=== PATIENT | female | born 1935 | race Caucasian/White ===

== ENCOUNTER 2024-11-04 09:29 | Outpatient (CLI) | payer OTHER, SELFPAY ==
--- NOTE | ~2024-11-04 | CT_ITS ---
EXAMINATION: CT cervical spine wo con DATE: 11/04/2024 10:27 INDICATION: Head injury. Fall. TECHNIQUE: Computed tomography (CT) of the cervical spine was performed without intravenous contrast. Automated exposure control and iterative reconstruction technique were employed. The dose-length pro duct was 204.87 mGy-cm. COMPARISON: None FINDINGS: There is a 9 mm nodule in left thyroid lobe, likely not clinically significant. There is 6 degrees levocurvature of cervical spine. There is 2 mm retrolisthesis of C3 on C4. There is mild grinder set up operator internal mikel anterior wedging of T1 vertebral body. There is moderately decreased disc height at C2-C3 and sev erely decreased disc height from C3-C4 through C6-C7 and at T1-T2 and T2-T3. The following disc level s are specifically discussed: C2-C3: There is mild lateral uncovertebral joint osteoarthritis. There is severe bilateral facet join t osteoarthritis. There is mild left neural foraminal stenosis. There is mild central canal stenosis. C3-C4: There is severe bilateral uncovertebral joint osteoarthritis. There is severe bilateral facet joint osteoarthritis. There is mild bilateral neural foraminal stenosis. There is mild central canal stenosis. C4-C5: There is severe right and moderate left uncovertebral joint osteoarthritis. There is severe bi lateral facet joint osteoarthritis. There is mild bilateral neural foraminal stenosis. There is mild central canal stenosis. C5-C6: There is severe bilateral uncovertebral joint osteoarthritis. There is severe right and modera te left facet joint osteoarthritis. There is moderate bilateral neural foraminal stenosis. There is m ild central canal stenosis. C6-C7: There is severe bilateral uncovertebral joint osteoarthritis. There is severe bilateral facet joint osteoarthritis. There is mild bilateral neural foraminal stenosis. There is mild central canal stenosis. C7-T1: There is no uncovertebral joint osteoarthritis. There is severe bilateral facet joint osteoart hritis. There is mild bilateral neural foraminal stenosis. There is no central canal stenosis. IMPRESSION: 1. No fracture. 2. Severe cervical spondylosis. Reviewed, dictated and finalized at location A. RM[employer] SYSTEMS PLANNER
--- NOTE | ~2024-11-04 | CT_ITS ---
EXAMINATION: CT brain wo con DATE: 11/04/2024 10:27 INDICATION: Weakness and weakness 2 days post fall with head injury and left-sided facial abrasions. TECHNIQUE: Computed tomography (CT) of the head was performed without intravenous contrast. Sagittal and coronal reconstructions were performed. The mA was adjusted according to patient size. Iterative reconstruction technique was employed. The dose-length product was 681.00 mGy-cm. COMPARISON: None FINDINGS: No fracture. No acute intracranial hemorrhage, acute infarction or abnormal extra axial fluid collect ion. There is mild scattered white matter hypoattenuation consistent with chronic small vessel ischem ic disease. Symmetric prominence of the sulci and ventricles consistent with mild age-appropriate dif fuse cerebral volume loss. No mass/mass effect. Mild mucosal thickening the bilateral ethmoid sinuses . Changes of bilateral intraocular lens replacement. The orbits and mastoid air cells are normal. IMPRESSION: 1. Normal aging brain. No fracture or acute intracranial process. Reviewed, dictated and finalized at location B. TAPER HELPER
--- OUTSIDE RECORDS SUMMARY | 2024-11-04 10:13 | XMS_ITS | Data Portability ---
Author Organization [facility], [address] [facility] Neurology ([place]) Address [address] [address] Care Team Providers Care Nutrition Services Assistant Name Role Phone MARIAELENA METZGER Primary Care Provider Assessment Encounter Date Assessment Date Assessment LastModified by Organization Details LastModified Time 07/29/2024 07/29/2024 HISTORY OF PRESE NT ILLNESS: The patient presents with her daughter for follow up of left shoulder pain and bilateral knee pain. She was given land and aqua continue therapy order at last appointment. However, she had an endoscope which delayed her restarting therapy. Her knees are doing well. She is ambulating with her cane. She still has shoulder pain and feels as if she is losing a little bit of mobility because of lack of therapy. PHYSICAL EXAMINATION: CONST: No acute distress. HENT: Oral mucosa pink and moist. RESP: Breathing appears normal. No use of accessory muscles. PSYCH: Stable mood and affect. NEURO: No speech difficulty. MSK: 2+ palpable radial pulse. Sensation intact to upper extremity dermatomes. Motor intact to radial, medial, ulnar distributions. On the left: The patient has about 75 degrees of forward flexion and abduction of the left shoulder. She has 45 degrees of external rotation. End range is slightly painful for her but she does tolerate it. 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 PLAN: The patient will submit her continue therapy order and restart the land and aqua therapy as soon as possible. She will follow up with me in 8 weeks to see how she is doing. No x-rays are needed at that time. The patient verbalized an understanding. All questions were answered. [email or web address] Not available 07/29/2024 16:00:08 08/12/2024 08/12/2024 They are going t o keep with the 30 mg dosage and continue monitoring for the next month. They will bring the blood pressure numbers back when they come. We talked about going to 40 mg of the lisinopril if the blood pressure is not controlled. Her BUN and creatinine were both elevated on the diuretics I do not think restarting the diuretic is a good idea at this point. They will monitor the the legs and if they get larger or become painful then we may need to address that. She can help with this by getting the legs up 3-4 times daily for 20 minutes above heart level. She is also watch salt intake. She does want to get the flu shot today. We discussed the shingles vaccine but it cannot be given at same time. The daughter plans to take her to [facility] to get that done. We will see her back in 1 month for recheck on the blood pressure or sooner problems arise. Patient verbalizes understanding and agreement with the treatment plan. Patient will continue to follow-up for acute health issues and routine medication checks. I personally spent a total of 20 minutes on the patient on this date of service including both wkkq-uh-vunh and rkm-tuku-su-face time excluding any separately reportable services. [email or web address] Not available 08/13/2024 18:27:22 09/14/2024 09/14/2024 We will continue the 30 mg dosage. I am going to change in the computer system today so that when it comes time to refill she will get the single 30 mg tablet and there will not be need to take 2 tablets daily. The patient and the daughter do understand this. When she is in need of refills they can call back and we will get that sent to the pharmacy. In the meantime I would like her to check the pressure once weekly to make sure that it is staying under control. If she is seeing consistent elevation above the 140/90 kaila they should call for further guidance. We will follow her up in 6 months unless there are problems in the meantime. Discussed with the patient they will be notified of results by patient portal or by mail. They will be notified of results by phone, only if results require immediate attention. Patient verbalizes understanding and agreement with the treatment plan. Patient will continue to follow-up for acute health issues and routine medication checks. [email or web address] Not available 09/14/2024 13:59:33 09/23/2024 09/23/2024 HISTORY OF PRESE NT ILLNESS: The patient presents for follow up of bilateral knee pain and left shoulder pain. The patient has left shoulder osteoarthritis. She has been doing land and aqua therapy which is going well. Her knees are doing great but she is still having significant left shoulder pain. She feels as if sometimes the exercises increase her pain. She is present with her daughter today. She is not gaining any mobility in her left shoulder. She would like to try a shoulder injection today. PHYSICAL EXAMINATION: CONST: No acute distress. HENT: Oral mucosa pink and moist. RESP: Breathing appears normal. No use of accessory muscles. PSYCH: Stable mood and affect. NEURO: No speech difficulty. MSK: 2+ palpable radial pulse. Sensation intact to upper extremity dermatomes. Motor intact to radial, medial, ulnar distributions. On the left: Forward flexion to 80 degrees as well as abduction. Range of motion is painful for her. DIAGNOSTIC DATA: Imaging from December 2023 of her left shoulder is reviewed and demonstrates severe bone on bone osteoarthritis of the left shoulder. These images were independently reviewed. Please see radiologist's report for full details. PROCEDURE: Informed consent was discussed and obtained. An explanation of the procedure was provided. The risks and benefits of the procedure, the risks and benefits of alternative procedures, as well as the possible consequences of not undergoing the procedure were discussed. Patient verbalized understanding and provided consent to proceed. The left shoulder shoulder was sterilely prepped. The left acromioclavicular joint was injected intraarticularly with a mixture of 6 cc of 0.5% marcaine without epinephrine and 1 cc of 80 mg methyl prednisone. The patient was given the appropriate instructions for aftercare following acromioclavicular joint injection. Patient verbalized understanding of aftercare instructions. The patient tolerated the procedure well. PLAN: The patient opted for a left shoulder injection today. She can continue her therapy. She will follow up in clinic in 6 weeks for a clinical recheck. The patient verbalized an understanding. All questions were answered. [email or web address] Not available 09/23/2024 14:36:09 10/19/2024 10/19/2024 1. Hypertension is not well-controlled. I did repeat her blood pressure and it had come down. They are watching her blood pressure at home. 2. Gastric reflux secondary to large hiatal hernia. We talked about this and went over CT scans. She was reassured to understand what was happening. 3 she will continue medications for her cholesterol. 4. 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 there has been no change in the erosion. She did see a specialist a few years ago for this and conservative monitoring was recommended. Right now, she is not having any incontinence or pain. 5. Memory changes were evident today. She admitted that she was not remembering things as well. She has good family support. return in 6 months or as needed for follow up. time 30 minutes [email or web address] Not available 10/19/2024 23:32:56 Plan of Treatment Reminders Order Date Submit Date Provider Last Modified By Organization Details Last Modified Time Details Appointments [facility] Patient 15.EST 2024 01:30P M Estephania Zayas Not available Not available Not available [facility] Patient 15.EST 2024 10:45A M Dr. Martínez Sanchez Not available Not available Not available [facility] Patient 15.EST 2024 02:30P M Dr. Mariaelena Cerrato Not available Not available Not available Lab None recorded . Referral None recorded . Procedures None recorded . Surgeries None recorded . Imaging None recorded . Medication Orders lisinopr il 30 mg tablet 2023 024 [facility], [id number] [facility], [place], [address], 09/14/2024 12:32:17 omeprazo le 20 mg capsule, delayed release 2024 025 [email or web address] [facility], [address] [place] [address], [id number], 10/19/2024 14:05:37 lisinopr il 30 mg tablet 2024 025 [email or web address] [facility], [address] [place] [address], [id number], 10/19/2024 14:05:37 metoprol ol succinat e ER 50 mg tablet,e xtended release 24 hr 2024 025 [facility], [address] [place] [address], [id number], 10/19/2024 14:05:37 Crestor 20 mg tablet 2024 025 [email or web address] [facility], [address] [place] [address], [id number], 10/19/2024 14:05:37 Patient TargetsNo targets recorded. Patient InstructionsNo instructions recorded. Reason for Referral None Reported. Results Created Date Observation Date Name Description Value Unit Range Abnormal Flag Note LastModifiedBy Organization Detail LastModifiedTime 07/18/20 24 07/19/2024 surgi evaristo patho logy study tissue exam biopsy [facility] [address],[place] [address] Ph. [phone] Chance Molina MD, PhD, Medic al Direc KRISTINE Lora MD Patie nt: MURIEL R, ODALIS EY L Sampl e ID: [id number] Repor t Statu s: Final :0 1934 Case #: [id number] Age: 89 Y Gende r: F Date Colle cted: 07/18 MRN # : [id number] Date Recei jerica: 07/18 Repor yonas Date: 07/19 FINAL DIAGN OSIS: Stoma ch, biops y: - Benig n gastr ic antra l mucos a with minim al chron ic infla mmati on, negat rashel for Helic obact er organ isms on routi ne stain Elect lisa stone Verluke ied by Bandar juarez MD Elect lisa mckeon 07/19 11:59 SPECI MEN SOURC E: Stoma ch, biops y GROSS DESCR IPTIO N: The speci men conta iner and requi sitio n have the same patie nt name. Recei jerica in 10% neutr al buffe red forma donn for forma donn-f ixed paraf fin-e mbedd ed secti ons label ed A, gastr ic biops y is a singl e fragm ent of moses- birch soft tissu e that is 0.5 cm in [facility] sam. The speci men is entir aishwarya submi tted for histo logic study in one casse tte. [facility] IN[facility] MATIO N: Reflu x. Colon scree n. Not Available [facility] [address] [place] [address], [id number], 07/19/2024 13:03:51 07/25/2007/26/2024 BMP, serum or plasm a basic met. panel Not Available [facility] [address] [place] [address], [id number], 07/26/2024 18:57:59 07/25/2007/26/2024 BMP, serum or plasm a glucose 96 mg/dL 70-100 Not Available [facility] [address] [place] [address], [id number], 07/26/2024 18:57:59 07/25/2007/26/2024 BMP, serum or plasm a sodium 139 mmol/ L 136-14 6 Not Available [facility] [address] [place] [address], [id number], 07/26/2024 18:57:59 07/25/2007/26/2024 BMP, serum or plasm a potassium 4.2 mmol/ L 3.5-5. 1 Not Available [facility] [address] [place] [address], [id number], 07/26/2024 18:57:59 07/25/2007/26/2024 BMP, serum or plasm a chloride 103 mmol/ L 98-110 Not Available [facility] [address] [place] [address], [address], 07/26/2024 18:57:59 07/25/2007/26/2024 BMP, serum or plasm a CO2 28 mEq/L 20-32 Not Available [facility] [address] [place] [address], [address], 07/26/2024 18:57:59 07/25/2007/26/2024 BMP, serum or plasm a anion gap 12 mmol/ L 10-22 Not Available [facility] [address] [place] [address], [address], 07/26/2024 18:57:59 07/25/2007/26/2024 BMP, serum or plasm a calcium 9.8 mg/dL 8.4-10 .4 Not Available [facility] [address] [place] [address], [address], 07/26/2024 18:57:59 07/25/2007/26/2024 BMP, serum or plasm a BUN 22 mg/dL 7-21 high Not Available [facility] [address] [place] [address], [address], 07/26/2024 18:57:59 07/25/2007/26/2024 BMP, serum or plasm a creatinine 1.0 mg/dL 0.7-1. 3 Not Available [facility] [address] [place] [address], [address], 07/26/2024 18:57:59 07/25/2007/26/2024 BMP, serum or plasm a GFR(non-afri can finnish) 55 The MDRD equat ion provi austin a good estim ation of the true GFR and refle cts dimin ished renal funct ion. It has been valid ated for optim al perfo rmanc e in adult patie nts betwe en 18-85 years of age. The follo wing condi tions may alter the GFR resul t ; extre mes in body size, sever e malnu triti on, skele christy muscl e disea se, parap legia or quadr ipleg ia, veget anahy diet, pregn wilda and rapid ly-ch angin g kidne y funct ion. Not Available [facility] [address] [place] [address], [id number], 07/26/2024 18:57:59 07/25/2007/26/2024 BMP, serum or plasm a GFR() 67 The MDRD equat ion provi austin a good estim ation of the true GFR and refle cts dimin ished renal funct ion. It has been valid ated for optim al perfo rmanc e in adult patie nts betwe en 18-85 years of age. The follo wing condi tions may alter the GFR resul t ; extre mes in body size, sever e malnu triti on, skele christy muscl e disea se, parap legia or quadr ipleg ia, veget anahy diet, pregn wilda and rapid ly-ch angin g kidne y funct ion. (HYDRAULIC BLOCKER SAVITA KIDNE Y DISEA SE HAS A GFR LESS THAN 60 ML/NJ N/1.7 3 MM FOR A PERIO D OF THREE MONTH S OR MORE. ) Not Available [facility] [address] [place] [address], [id number], 07/26/2024 18:57:59 06/30/2006/23/2024 CT, chest , w/o contr ast No observ ation record ed. [email or web address] [facility] - [place], [address], 06/30/2024 08:55:56 07/14/20 24 06/10/2024 XR, chest , 2 view No observ ation record ed. [email or web address] Not Available 2023 10:31:18 07/26/20 24 01/25/2024 imagi ng/di agnos tic resul t No observ ation record ed. [email or web address] Not Available 00:02:01 08/03/20 24 06/23/2024 CT, chest , w/o contr ast No observ ation record ed. [email or web address] [facility] - [place], [address], 08/03/2024 10:38:35 08/10/20 24 06/29/2024 jerel alberto am No observ ation record ed. [email or web address] Not Available 2023 13:18:33 09/27/20 XR, knee No observ ation record ed. [email or web address] Not Available 2023 11:45:36 Result Notes None recorded. Problems Name Problem SNOMED Code Status Onset Date Resolution Date Notes Provider Name and Address Organization Details Recorded Time Cough 26855884 Active 2023 Luisa Anne [facility] 4 12:25:50 Morbid obesity 895188164 Active Not Available [facility] 4 12:38:48 Ascending aorta dilatation 308290349 Active Not Available [facility] 4 12:38:50 Interstiti al lung disease 878315546 Active Not Available [facility] 4 12:38:54 Benign essential hypertensi on 8321165 Active 2023 Zayra Diaz [facility] 5 09:12:08 Hyperlipid emia 79790387 Active 2023 Luisa Anne [facility] 5 11:54:16 Anxiety 48536102 Active 2023 Zayraher Diaz [facility] 5 09:12:03 Chronic constipati on 879848430 Active 2023 Mariaelena Cerrato MD [address] [place] [address], [address] , [facility] 4 15:35:03 Pain in right hip joint 5542412694360 02 Active 2023 Mariaelena Cerrato MD [address] [place] [address], [address] , [facility] 4 15:35:14 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 1083642252 Active 2023 Mariaelena Cerrato MD [address] [facility], [place], [address] , [facility] 4 15:35:26 Conductive hearing loss 57390313 Active 2023 Zayra Joe [facility] 5 09:12:17 Cystocele 662537073 Active 2023 Mariaelena Cerrato MD [address] [facility], [place], [address] , [facility] 4 15:35:43 Esophageal reflux finding 592557008 Active 2023 Mariaelena Cerrato MD [address] [facility], [place], [address] , [facility] 4 15:36:02 History of deep vein thrombosis 531011462 Active 2023 Mariaelena Cerrato MD [address] [facility], [place], [address] , [facility] 4 15:36:12 Low back pain 888359502 Active 2023 Mariaelena Cerrato MD [address] [facility], [place], [address] , [facility] 4 15:36:29 Urinary incontinen ce 461218363 Active 2023 Mariaelena Cerrato MD [address] [place] [address], [address] , [facility] 4 15:36:37 Obstructiv e sleep apnea syndrome 55162998 Active 2015 Kandi Barnes [facility] 4 15:18:28 Osteoporos is 24314373 Active 2023 Zayra Joe [facility] 5 09:12:48 Hiatal hernia 23946883 Active 2023 Mariaelena Cerrato MD [address] [place] [address], [address] , [facility] 5 23:23:29 Bilateral osteoarthr itis of knees 1654736372157 07 Active 2023 Michelle Vigil [facility] 4 11:46:31 Daytime somnolence 626899793223 Active 2018 Kandi Barnes [facility] 4 15:18:28 Primary hyperchole sterolemia 630764365 Active 2016 Zayra Gargrecia [facility] 5 09:12:42 Left carotid artery stenosis 1273230249684 03 Active 2015 Zayra Gargrecia [facility] 5 09:13:09 Depressive disorder 10125869 Active 2015 Zayra Gargrecia [facility] 5 09:13:54 Takotsubo cardiomyop athy 615991002 Active 2015 Zayra Gargrecia [facility] 5 09:12:35 Hypertensi ve heart failure 96219464 Active 2016 [facility] Leonidesgrecia [facility] 5 09:13:24 Complicati on of medical care 45407142 Active 2024 Mariaelena Cerrato MD [address] [place] [address], [address] , [facility] 5 23:23:20 Sliding hiatus hernia 603994415 Active 2024 Mariaelena Cerrato MD [address] [place] [address], [address] , [facility] 5 23:23:31 Pain of bilateral knee joints 7225600704316 04 [facility] 2023 [facility] 10[facility]50[facility]22 History of bilateral total knee replacemen t 4489302653683 103 Active 2023 Estephania Zayas PA-C [address] [place] [address], [address] , [facility] 4 11:56:40 Osteoarthr itis of joint of left shoulder region 4303143351926 08 Active 2023 Estephania Zayas PA-C [address] [place] [address], [address] , [facility] 4 11:56:52 Pain of left shoulder region Active 2023 Estephania Zayas PA-C [address] [place] [address], [address] , [facility] 4 11:57:04 Obstructiv e sleep apnea of adult 6712894069221 Active 2023 [facility] 09:12:58 Problem Notes None recorded. Procedures Surgical History Date Name Laterality Status Provider Name and Address Organization Details Recorded Time 07/18/20 24 [place] Operative Report completed Josefa Polo [facility] 07/18/2024 19:58:03 incision of anal fistula completed Mariaelena Cerrato MD [address] [place] [address], [address], [facility] 06/12/2024 15:37:21 operation on urinary bladder completed Mariaelena Cerrato MD [address] [place] [address], [address], [facility] 06/12/2024 15:37:29 extraction of cataract completed Mariaelena Cerrato MD [address] [place] [address], [address], [facility] 06/12/2024 15:37:36 Cholecystectomy completed Mariaelena Cerrato MD [address] [place] [address], [address], [facility] 06/12/2024 15:37:45 repair of inguinal hernia completed Mariaelena Cerrato MD [address] [place] [address], [address], [facility] 06/12/2024 15:37:52 arthroplasty of knee completed Mariaelena Cerrato MD [address] [place] [address], [address], [facility] 06/12/2024 15:37:59 Back Surgery completed Mariaelena Cerrato MD [address] [place] [address], [address], [facility] 06/12/2024 15:38:30 Imaging Results Imaging Date Name Status LastModified by Organization Details LastModified Time 06/23/2024 CT, chest, w/o contrast completed [email or web address] [facility] [place], [address], 06/30/2024 08:55:56 06/10/2024 XR, chest, 2 view completed [email or web address] Informa tion not available 07/14/2024 10:31:18 01/25/2024 imaging/diagnostic result completed [email or web address] Information not available 07/26/2024 00:02:01 06/23/2024 CT, chest, w/o contrast completed [facility] [place], [address], 08/03/2024 10:38:35 06/29/2024 electrocardiogram completed [facility] Informa tion not available 08/10/2024 13:18:33 09/27/2024 XR, knee completed [email or web address] Information no t available 09/27/2024 11:45:36 Procedure Notes None recorded. Medical Equipment None Reported. Allergies Allergen ID Allergen Name Allergen Category Reaction Reaction Severity Criticality Documentation Date Start Date Code Code System Note Provider Name and Address Organization Details Recorded Time 3208593 Parafon Fort[employer] [facility] medicatio n dizziness Not available Not available 10/28/20232008 86799 8 RxNorm React ion: Dizzi ness; Not Available Not Available Not Available 485638 Product containin g mercury and/or mercury compound (product) medicatio n rash Not available Not available 10/26/20232008 84303 6000 SNOMED React ion: Rash; Not Available Not Available Not Available 890279 mustard oil food,medi cation rash Not available Not available 10/26/20232015 28174 31 RxNorm Not Available Not Available Not Available 493102 apple allergeni c extract food,medi cation rash Not available Not available 10/26/20232011 20095 1 RxNorm React ion: Rash; Comme nt: Apple s ; Not Available Not Available Not Available 991106 mustard seed allergeni c extract food,medi cation rash Not available Not available 10/26/20232013 52027 6 RxNorm React ion: Rash; Comme nt: Musta rd Re actio n Date: 17 Nov 2012 ; Not Available Not Available Not Available 938289 chlorzoxa zone medicatio n Not available Not available Not available 10/26/20232018 2410 RxNorm Not Available Not Available Not Available 039469 Product containin g 3-hydroxy -3-methyl glutaryl- coenzyme A reductase inhibitor (product) medicatio n Not available Not available Not available 10/26/20232015 42575 009 SNOMED Other react ions and sever ities : 'Unkn own'. Not Available Not Available Not Available Medications Name Sig Start Date Stop Date Status Note LastModified by Organization Details LastModified Time amoxicillin 500 mg capsule TAKE FOUR CAPSULES BY MOUTH ONE HOUR BEFORE APPOINTME NT active Not Available Not Available No t Available latanoprost 0.005 % eye drops INSTILL 1 DROP IN BOTH EYES EVERY DAY AT BEDTIME active Not Available Not Available No t Available clonidine HCl 0.1 mg tablet Take 1 {tbl} twice a day by oral route. 07/25 completed Not Available Not Available Not Available Stool Softener 100 mg capsule TAKE 1 CAPSULE BY MOUTH TWICE DAILY NEEDED active Not Available Not Available No t Available metoprolol succinate ER 50 mg tablet,exte nded release 24 hr TAKE 2 TABLETS IN THE MORNING AND 1 TABLET IN THE EVENING 2024 active Not Available Not Available Not Avai lable metronidazo le 0.75 % (37.5 mg/5 gram) vaginal gel 07/25 completed Not Available Not Available Not Available lisinopril 20 mg tablet TAKE ONE TABLET DAILY 10/19 completed Not Available Not Available Not Available chlorthalid one 25 mg tablet TAKE 1 TABLET DAILY 08/12 completed Not Available Not Available Not Available chlorthalid one 50 mg tablet Take 1 {tbl} by oral route. 07/25 completed Not Available Not Available Not Available aspirin 81 mg tablet,pedro yed release 07/25 completed Not Available Not Available Not Available ropinirole 0.5 mg tablet 08/12 completed Not Available Not Available Not Available lisinopril 10 mg tablet TAKE 1 TABLET DAILY ALONG WITH 20MG TO EQUAL 30MG 09/14 completed Not Available Not Available Not Available Citrucel 500 mg tablet 1000 mg by oral route. active Not Available Not Available No t Available ascorbic acid (vitamin C) 500 mg chewable tablet Take 1 {tbl} by oral route. 09/14 completed Not Available Not Available Not Available lisinopril 30 mg tablet Take 1 tablet every day by oral route. 2024 active Not Available Not Available Not Avai lable omeprazole 20 mg capsule,del ayed release TAKE 1 CAPSULE DAILY 2024 active Not Available Not Available Not Avai lable timolol maleate 0.5 % eye drops INSTILL 1 DROP INTO EACH EYE IN THE MORNING active Not Available Not Available No t Available Estrace 0.01% (0.1 mg/gram) vaginal cream 07/25 completed Not Available Not Available Not Available erythromyci n with ethanol 2 % topical gel APPLY AND RUB IN A THIN FILM TO AFFECTED AREA(S) ONCE OR TWICE DAILY 06/10 completed Not Available Not Available Not Available Crestor 20 mg tablet Take 1 tablet every day by oral route. 01/22/ 2025 active Not Available Not Available Not Avai lable cholecalcif laureen (vitamin D3) 50 mcg (2,000 unit) tablet 07/25 completed Not Available Not Available Not Available aspirin 81 mg capsule Take 1 capsule every day by oral route. active Not Available Not Available No t Available Vitals Date Recorded Body height Body mass index (BMI) Body weight Heart rate Respiratory rate Oxygen saturation Oxygen saturation in Arterial blood by Pulse oximetry Systolic blood pressure Diastolic blood pressure Provider Name and Address Organization Details Last Updated DateTime 4 160.02 cm 34.9 kg/m2 01235.7 g 66 /min 16 /min 94 % 94 % 155 mm[Hg] 83 mm[Hg] Darya Nahid [facility] 4 14:28:50 Date Recorded Body height Body mass index (BMI) Body weight Heart rate Oxygen saturation Oxygen saturation in Arterial blood by Pulse oximetry Body temperature Systolic blood pressure Diastolic blood pressure Provider Name and Address Organization Details Last Updated DateTime 4 160.02 cm 34.9 kg/m2 32601.4 2 g 76 /min 92 % 92 % 96.8 [degF] 148 mm[Hg] 82 mm[Hg] [facility] 4 15:38:23 Date Recorded Oxygen saturation Oxygen saturation in Arterial blood by Pulse oximetry Provider Name and Address Organization Details Last Updated DateTime 08/12/2024 98 % 98 % Ildefonso Morris PA-C [facility], [address], [facility] 08/12/2024 16:16:20 Date Recorded Body height Body mass index (BMI) Body weight Body temperature Oxygen saturation Oxygen saturation in Arterial blood by Pulse oximetry Heart rate Systolic blood pressure Diastolic blood pressure Provider Name and Address Organization Details Last Updated DateTime 4 160.02 cm 33.5 kg/m2 75081.6 8 g 96.4 [degF] 96 % 96 % 74 /min 134 mm[Hg] 72 mm[Hg] [facility] 4 12:08:37 Date Recorded Body height Body mass index (BMI) Body weight Heart rate Oxygen saturation Oxygen saturation in Arterial blood by Pulse oximetry Systolic blood pressure Diastolic blood pressure Provider Name and Address Organization Details Last Updated DateTime 4 160.02 cm 33.5 kg/m2 85713.9 6 g 76 /min 97 % 97 % 143 mm[Hg] 77 mm[Hg] Michelle Vigil [facility] 4 14:04:11 Date Recorded Body height Body mass index (BMI) Body weight Body temperature Heart rate Oxygen saturation Oxygen saturation in Arterial blood by Pulse oximetry Systolic blood pressure Diastolic blood pressure Provider Name and Address Organization Details Last Updated DateTime 5 160.02 cm 32.1 kg/m2 12976.2 2 g 96.9 [degF] 64 /min 93 % 93 % 168 mm[Hg] 88 mm[Hg] Luisa Anne [facility] 5 11:46:23 Social History None recorded. Functional Status None recorded. Mental Status None recorded. Family History Relationship Description Onset Age of this Age Resolved Age Notes LastModified by Organization Details LastModified Time Maternal Aunt Malignant tumor of colon [email or web address] Not available 2023 15:38:57 Maternal Aunt Malignant tumor of breast [email or web address] Not available 2023 15:39:52 Father Heart disease Not available 2023 15:39:08 Mother Suicide [email or web address] Not available 06/12/2024 15:39:21 Sister Malignant neoplasm of skin [email or web address] Not available 2023 15:39:33 Medical History No medical history recorded. Gynecological HistoryNo gynecological history recorded. Obstetrics History GPAL:G 0 P 0 0 0 0 Immunizations Vaccine Type Date Status Note Provider Nam e and Address Organization Details Recorded Time Influenza, adjuvanted, quadrivalent, PF 07/13/20 23 completed Luisa Anne [facility] 06/10/2024 12:22:22 Influenza, adjuvanted, quadrivalent, PF 07/15/20 22 completed Luisa Anne [facility] 06/10/2024 12:22:22 Influenza, adjuvanted, quadrivalent, PF 07/26/20 20 completed Luisa Anne [facility] 06/10/2024 12:22:22 Influenza, adjuvanted, quadrivalent, PF 08/05/20 21 [facility] 12:22:22 COVID-19, mRNA, LNP-S, PF, 100 mcg/0.5mL dose or 50 mcg/0.25mL dose 10/13/19 21 completed [facility] 12:22:22 COVID-19, mRNA, LNP-S, PF, 100 mcg/0.5mL dose or 50 mcg/0.25mL dose 11/10/19 21 completed [facility] 12:22:22 COVID-19, mRNA, LNP-S, PF, 100 mcg/0.5mL dose or 50 mcg/0.25mL dose 02/18/20 22 completed [facility]/10[facility]24 12:22:22 COVID-19, mRNA, LNP-S, PF, 100 mcg/0.5mL dose or 50 mcg/0.25mL dose 08/24/20 21 completed [facility] 06/10/[facility]24 12:22:22 COVID-19, mRNA, LNP-S, bivalent, PF, 50 mcg/0.5 mL or 25mcg/0.25 mL dose 07/10/20 22 completed [facility]24 12:22:22 pneumococcal conjugate PCV 7 12/06/19 15 completed [facility]/10[facility]24 12:22:22 pneumococcal polysaccharide PPV23 07/13/20 23 completed [facility] 12:22:22 Influenza, split virus, trivalent, preservative 08/04/20 17 completed [facility] 12:22:22 Influenza, split virus, trivalent, PF 06/28/20 16 completed Luisa Anne null, [facility] 06/10/2024 12:22:22 Influenza, split virus, trivalent, PF 06/29/20 15 completed Luisa Pimenteln null, [facility] 06/10/2024 12:22:22 Influenza, split virus, quadrivalent, PF 08/29/20 19 completed Luisa Pimenteln null, [facility] 06/10/2024 12:22:22 Influenza, split virus, quadrivalent, PF 09/07/20 18 completed Luisa Anne null, [facility] 06/10/2024 12:22:22 Influenza, adjuvanted, trivalent, PF 08/12/20 24 completed Ildefonso Morris PA-C [facility], [address], [facility] 08/15/2024 16:56:05 Past Encounters Encounter ID Performer Location Encounter Start Date Encounter Closed Date Diagnosis/Indication Diagnosis SNOMED-CT Code Diagnosis ICD10 Code Diagnosis Note [id number] Estephania Zayas PA-C [facility] [place] [address] [place] [address] 03/18/2024 09:50:33 03/19/2024 05:35:19 Pain of bilateral knee joints 6114244424 01795 M25.561 M25.562 History of bilateral total knee replacement 1527778841 454798 Z96.653 Pain of le ft shoulder region 6314433346 M25.512 Osteoarthr itis of joint of left shoulder region 6138995445 07107 M19.425 [id number] Mariaelena Schwarz, WIND TURBINE PERFORMANCE ENGINEER, POWERBUILDER [facility] [place] [address] [place] [address] 05/13/2024 09:49:05 05/13/2024 14:17:34 Osteoarthritis of joint of left shoulder region 9632815000 78541 M19.012 M54.50 M25.569 Pain of bi lateral knee joints 0162319763 73777 M25.561 M25.562 Pain of le ft shoulder region 2220525232 M25.010 [id number] MD [facility] ([place] [address] 06/10/2024 11:34:40 06/10/2024 15:55:30 Morbid obesity 197790464 E66.01 Ascending aorta dilatation 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 I77.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 006138928 J84.9 Cough 38819550 R05.9 Benign ess ential hypertension 7292076 I10 Hyperlipidemia 70973612 E78.5 [id number] Nakita Lozoya, WIND TURBINE PERFORMANCE ENGINEER, POWERBUILDER [address] [facility] ([place]) [address] [place] [address] 06/30/2024 11:02:57 06/30/2024 11:57:50 Hiatal hernia 74588178 K44.9 R05.9 [id number] Jono Ibrahim MD [facility] Anesthesi a S [address] [place] [address] 07/18/2024 10:55:45 07/26/2024 10:01:10 [id number] Estephania Zayas PA-C [facility] ([place] [address] 07/08/2024 11:21:07 07/08/2024 18:40:12 Osteoarthritis of joint of left shoulder region 6652362597 59027 M19.012 M54.50 M25.569 Pain of bi lateral knee joints 8401071792 42567 M25.561 M25.562 [id number] Kristine Win MD [facility] ([place]) [address] [place] [address], [address] [place] [address] 07/18/2024 10:55:47 07/21/2024 09:09:42 [id number] MD Ekta [facility] ([place] [address] 07/25/2024 14:42:23 07/25/2024 16:50:23 Benign essential hypertension 3388888 I10 Chronic constipation 236 408861 K59.09 Cough 46570499 R05.9 Hiatal hernia 95710489 K 44.9 R05.9 [id number] [facility] ([place] [address] 07/29/2024 14:21:06 07/29/2024 18:49:12 Osteoarthritis of joint of left shoulder region 7189884395 87899 M19.012 M54.50 M25.569 History of bilateral total knee replacement 0647478123 223624 Z96.653 [id number] NAREN [facility] ([place] [address] 08/12/2024 15:07:22 08/12/2024 16:30:38 [facility] [id number] 41296 Z23 [id number] NAREN Hernandez [facility] ([place] [address] 09/14/2024 11:58:23 09/14/2024 13:13:27 Benign essential hypertension 9912860 I10 Long-term current use of drug therapy 288471878 Z79.899 [id number] [facility] ([place] [address] 09/23/2024 13:50:51 09/24/2024 06:02:50 Bilateral osteoarthritis of knees 4395423004 76116 M17.0 Osteoarthr itis of joint of left shoulder region 5140555941 23755 M19.012 M54.50 M25.569 [id number] MD Ekta Worrell [facility] ([place] [address] 10/19/2024 11:35:23 10/19/2024 12:44:29 Benign essential hypertension 3842860 I10 Gastric reflux 392930073 K21.9 Hyperlipidemia 91484928 E78.5 Morbid obesity 296946049 E66.01 Complicati on of medical care 39612148 T83.718D Hiatal hernia 08597642 K 44.9 Health Concerns Section Related Observation LastModified by Organization Detai ls LastModified Time None Recorded Concern Status LastModified by Organization Details LastModified Time None Recorded Advance Directives Directive None Recorded Payers Encounter Date Sequence Insurance Name Policy Number Policy Peña Covered Member ID Peña Member ID Guarantor Name 07/29/2024 1 [employer] (MEDICARE REPLACEMENT PPO) [id number] Alisa L Falter [id number] Alisa L Falter 08/12/2024 1 [employer] (MEDICARE REPLACEMENT PPO) [id number] Alisa L Falter [id number] Alisa L Falter 09/14/2024 1 [employer] (MEDICARE REPLACEMENT PPO) [id number] Alisa L Falter [id number] Alisa L Falter 09/23/2024 1 [employer] (MEDICARE REPLACEMENT PPO) [id number] 2 Alisa L Falter [id number] Alisa L Falter 10/19/2024 1 [employer] (MEDICARE REPLACEMENT PPO) [id number] Alisa L Falter [id number] Alisa L Falter Notes Date Note Type Note Provider Name and Address Organization Details Recorded Time 08/12/2024 text/html Patient comes in with her daughter today for medication follow-up. At the last visit with Dr. Cerrato they were told to increase her lisinopril to 30 mg daily. Her chlorthalidone was stopped because of the elevated BUN and creatinine. It was rechecked and improved. She has stayed off of it. They are having a hard time cutting the lisinopril tablet. He keeps breaking into small pieces and the daughter is unsure if she is actually getting half a tablet in addition to the full 20 mg. They called back and they did get TENS prescribed but she has not started that yet. Her blood pressure readings were improved since starting the higher dose but still not down to goal below 140. She has not noticed any increase of side effects since increasing the medication. They have noticed just a little bit more swelling in the legs and stopping the diuretic. It is not uncomfortable at all. It seems to be worse by end of the day. It improves by morning. Ildefonso Morris PA-C [address] [place] [address], [phone], [facility] 08/15/2024 16:56:17 09/14/2024 text/html The patient come s in today for a 1 month follow-up on her blood pressure. She was seen last month and blood pressure medication was kept at the same dose of 30 mg. She has tolerated the increased dosage. As she is currently taking a 10 and 20 mg tablet to equal to 30 mg. She has quite a few of them left. She does not check her blood pressure at home. Her daughter says they do have a blood pressure monitor at home but they can do that. She has actually had less swelling in her legs over the last month. She has started eating a little better. She is now back in therapy for the shoulder. Ildefonso Morris PA-C [address] [place] [address], [phone], [facility] 09/17/2024 09:16:52 10/19/2024 text/html Alisa is here with her daughter. She is an 89-year-old woman who lives in the community. We treated her for hypertension, acid reflux and hyperlipidemia. She is very sedentary due to arthritis in her back and has gained weight. She has no desire to do any regular exercise or work on weight loss. She had urinary incontinence which was related to a failed mesh placement for incontinence. She had an injection into her left shoulder for shoulder arthritis with prednisone. The day after that, she stopped having any incontinence and has had no further problems with this. She has been having a vaginal discharge which is pink and she worries that there may be something wrong. She wants we did do a Pap smear today. She has a large hiatal hernia that was found and evaluated on the CT scan. She has been seen by the surgeon specialist and they do not want to do any surgery. She felt that she was not given enough information after an EGD and so we pulled up her CT scan so she could see the extent of the hiatal hernia. It is quite large in this image and retrocardiac in position. I explained to her why she would have her symptoms of fullness and distress at times. I explained why she should eat small frequent meals and avoid eating before lying down. This helped her to understand and she was relieved. She is on omeprazole for acid reflux. Mariaelena Cerrato MD [address] [place] [address], [phone], [place] [facility] 10/19/2024 23:34:03 OBGyn Episode No OBEpisode recorded.
--- OUTSIDE RECORDS SUMMARY | 2024-11-04 10:14 | XMS_ITS ---
Author Organization Unknown Address [address] [place] [phone] Phone Care Team Providers Care Sales Promotion Representative Name Role Phone LYNNE MCKENZIE Attending Unavailable DOMENICA DESAI Primary Unavailable Immunization Immunization Date Status Additional Notes Code Code System COVID-19, mRNA, LNP-S, bivalent, PF, 50 mcg/0.5 mL or 25mcg/0.25 mL dose 07/10/2022 Completed 229 CVX pneumococcal conjugate PCV 7 12/05/2014 Completed 100 CVX COVID-19, mRNA, LNP-S, PF, 1 00 mcg/0.5mL dose or 50 mcg/0.25mL dose 02/17/2022 Completed 207 CVX pneumococcal polysaccharide PPV23 07/13/2023 Completed 33 CVX Influenza, split virus, trivalent, PF 06/29/2015 Completed 140 CVX Influenza, split virus, trivalent, PF 06/28/2016 Completed 140 CVX Influenza, split virus, trivalent, preservative 08/04/2017 Completed 141 CVX Influenza, split virus, quadrivalent, PF 09/07/2018 Completed 150 CVX Influenza, split virus, quadrivalent, PF 08/29/2019 Completed 150 CVX Influenza, adjuvanted, trivalent, PF 08/12/2024 Completed 168 CVX Influenza, adjuvanted, quadrivalent, PF 07/26/2020 Completed 205 CVX Influenza, adjuvanted, quadrivalent, PF 08/05/2021 Completed 205 CVX Influenza, adjuvanted, quadrivalent, PF 07/15/2022 Completed 205 CVX Influenza, adjuvanted, quadrivalent, PF 07/13/2023 Completed 205 CVX COVID-19, mRNA, LNP-S, PF, 1 00 mcg/0.5mL dose or 50 mcg/0.25mL dose 10/13/2020 Completed 207 CVX COVID-19, mRNA, LNP-S, PF, 1 00 mcg/0.5mL dose or 50 mcg/0.25mL dose 11/10/2020 Completed 207 CVX COVID-19, mRNA, LNP-S, PF, 1 00 mcg/0.5mL dose or 50 mcg/0.25mL dose 08/24/2021 Completed 207 CVX Pneumococcal conjugate PCV 13 09/28/2007 Completed 133 CVX Influenza, high-dose, trivalent, PF 06/12/2012 Completed 135 CVX Social History Type Status Start Date End Date Code Code Syst em Smoking History Never smoker (Never Smoked) 262971536 SNOMED CT Sex Female Medications Medication Start Date End Date Route Frequency Dose Code Code System Medication Instructions Home Meds Lisinopril 30MG Oral Tablet 06/25/2013 Unknown ORAL DAILY 30 MILLIGRAMS 20521103 RxNorm 30 MILL IGRAMS ORAL DAILY Omeprazole 20MG Oral Capsule, Delayed Release 06/25/2013 Unknown ORAL DAILY 20 MILLIGRAMS 455368 RxNorm 20 MILL IGRAMS ORAL DAILY Clonidine 0.1MG Oral Tablet 06/25/2013 Unknown ORAL Q 12H 0.1 MILLIGRAMS 624474 RxNorm 0.1 MILLIGRAMS ORAL Q 12H Cranberry 400MG Oral Capsule 06/25/2013 Unknown ORAL Q 12H 400 MILLIGRAMS 6776898 RxNorm 400 MILLIGRAMS ORAL Q 12H Assessment You had the following problems:PHYSICAL THERAPY EVALUATION, INITIALS/P TOTAL KNEE ARTHROPLASTY Hospital Discharge Instructions Should you have any questions prior to discharge, please contact a member of your healthcare team. If you have left the hospital and have any questions, please contact your primary care physician. Reason For Referral No Data Found Implants Implanted DEV Status Assigning Authority Procedure Date Lot Number Serial Number Manufacturing Date Expiration Date Distinct ID Code Brand Name Model Number ACRYSOF IQ IOL Active XCAPSL CTRC RMVL INSJ IO LENS PROSTH W/O ECP 04/02 [id number] 076 11/12/2026 ACRYSO F SN60WF POWER: +21.5D Problems Problem Start Date Resolved Date Status Code Code System PHYSICAL THERAPY EVALUATION, INITIAL active 467096061 SNOMED-CT S/P TOTAL KNEE ARTHROPLASTY active 16 1666395 SNOMED-CT S/P TOTAL KNEE REPLACEMENT 06/21/2013 resolved 16 7516875 SNOMED-CT Allergies and Adverse Reactions Allergy Substance Reaction Severity Start Date Concern Status Code Code System CHLORZOXAZONE Active 2410 RxNorm MERCURY Rash (SNOMED-CT: 972432234) Moderate Active 6769 RxNorm ALLYL ISOTHIOCYANATE Active MUSTARD Rash (SNOMED-CT: 579925965) Active PARAFON FORTE DSC NAUSEA (SNOMED-CT: null) Moderate Active 569568 RxNorm APPLE Rash (SNOMED-CT: 835196612) Moderate Active STATINS (HMG-COA REDUCTASE INHIBITORS) Active Plan of Treatment Digital Haris Screen Bilateral (82580) CT Chest/Lung WO Contrast (61461) 06/23 Encounters Encounter Diagnosis Start Date Code Code Sys tem 03/29/2024 [id number] SNOMED-CT Personal Care Team Section Performer Name Performer Role Active Date Inactive Da te
--- OUTSIDE RECORDS SUMMARY | 2024-11-04 10:14 | XMS_ITS ---
Author Organization Unknown Address [address] [place] [address] [phone] Phone Care Team Providers Care Radial Drill Press Operator Name Role Phone CHERYL OSPINA Attending Unavailable DOMENICA DESAI Primary Unavailable Immunization [...] em Smoking History Never smoker (Never Smoked) 168875953 SNOMED CT Sex Female Medications Medication Start Date End Date Route Frequency Dose Code Code System Medication Instructions Home Meds Lisinopril 30MG Oral Tablet 06/25/2013 Unknown ORAL DAILY 30 MILLIGRAMS 20521103 RxNorm 30 MILL IGRAMS ORAL DAILY Omeprazole 20MG Oral Capsule, Delayed Release 06/25/2013 Unknown ORAL DAILY 20 MILLIGRAMS 314102 RxNorm 20 MILL IGRAMS ORAL DAILY Clonidine 0.1MG Oral Tablet 06/25/2013 Unknown ORAL Q 12H 0.1 MILLIGRAMS 315882 RxNorm 0.1 MILLIGRAMS ORAL Q 12H Cranberry 400MG Oral Capsule 06/25/2013 Unknown ORAL Q 12H 400 MILLIGRAMS 9979399 RxNorm 400 MILLIGRAMS ORAL Q 12H Assessment [...] INSJ IO LENS PROSTH W/O ECP 04/02 0416837 1 076 11/12/2026 ACRYSO F SN60WF POWER: +21.5D Problems Problem Start Date Resolved Date Status Code Code System PHYSICAL THERAPY EVALUATION, INITIAL active 136093852 SNOMED-CT S/P TOTAL KNEE ARTHROPLASTY active 16 4153838 SNOMED-CT S/P TOTAL KNEE REPLACEMENT 06/21/2013 resolved 16 2827478 SNOMED-CT Allergies and Adverse Reactions Allergy Substance Reaction Severity Start Date Concern Status Code Code System CHLORZOXAZONE Active 2410 RxNorm MERCURY Rash (SNOMED-CT: 918508004) Moderate Active 6769 RxNorm ALLYL ISOTHIOCYANATE Active MUSTARD Rash (SNOMED-CT: 483885339) Active PARAFON FORTE DSC NAUSEA (SNOMED-CT: null) Moderate Active 139943 RxNorm APPLE Rash (SNOMED-CT: 660098244) Moderate Active STATINS (HMG-COA REDUCTASE INHIBITORS) Active Plan of Treatment Digital Haris Screen Bilateral (41131) CT Chest/Lung WO Contrast (69518) 06/23 Encounters Encounter Diagnosis Start Date Code Code Sys tem 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
--- OUTSIDE RECORDS SUMMARY | 2024-11-04 10:14 | XMS_ITS ---
Author Organization Unknown Address [address] [place] [phone] Phone Care Team Providers Care Lead Network Architect Name Role Phone DOMENICA DESAI Attending Unavailable Immunization Immunization Date Status Additional Notes [...] high-dose, trivalent, PF 06/12/2012 Completed 135 CVX Results SHOULDER MIN 2V LEFT - Compl eted: 01/25/2024 17:02 LOINC: EXAM DESCRIPTION: SHOULDER MIN 2V LEFT REASON FOR STUDY: Pain and ROM issues in left shoulder. Cannot raise arm very high. Patient states no trauma. No surgeries to shoulder. Duration: 1 week TECHNIQUE: 3 radiographic view(s) of the left shoulder. COMPARISON: None FINDINGS: There is no acute fracture or dislocation. There is severe glenohumeral osteoarthritis with joint space loss, subchondral sclerosis, humeral head deformation and joint bodies. There is mild acromioclavicular osteoarthritis. Mineralization above the humeral head could be due to joint bodies or rotator cuff calcific tendinitis. The acromioclavicular and coracoclavicular relationships are preserved. IMPRESSION: ? ? No acute osseous abnormality. ? ? Severe glenohumeral osteoarthritis. THIS IS AN ELECTRONICALLY VERIFIED FINAL REPORT 01/27/2024 8:47 AM - Electronically signed by Peter Hdez M.D. JR: Report ID: [id number] Reading Location: [place] [address] Social History Type Status Start Date End Date Code Code Syst em Smoking History Never smoker (Never Smoked) 513230314 SNOMED CT Sex Female Medications Medication Start Date End Date Route Frequency Dose Code Code System Medication Instructions Home Meds Lisinopril 30MG Oral Tablet 06/25/2013 Unknown ORAL DAILY 30 MILLIGRAMS 20521103 RxNorm 30 MILL IGRAMS ORAL DAILY Omeprazole 20MG Oral Capsule, Delayed Release 06/25/2013 Unknown ORAL DAILY 20 MILLIGRAMS 19800127 RxNorm 20 MILL IGRAMS ORAL DAILY Clonidine 0.1MG Oral Tablet 06/25/2013 Unknown ORAL Q 12H 0.1 MILLIGRAMS 588314 RxNorm 0.1 MILLIGRAMS ORAL Q 12H Cranberry 400MG Oral Capsule 06/25/2013 Unknown ORAL Q 12H 400 MILLIGRAMS 4623440 RxNorm 400 MILLIGRAMS ORAL Q 12H Assessment [...] INSJ IO LENS PROSTH W/O ECP 04/02 [id number] 1 076 11/12/2026 ACRYSO F SN60WF POWER: +21.5D Problems Problem Start Date Resolved Date Status Code Code System PHYSICAL THERAPY EVALUATION, INITIAL active 028388064 SNOMED-CT S/P TOTAL KNEE ARTHROPLASTY active 16 7979740 SNOMED-CT S/P TOTAL KNEE REPLACEMENT 06/21/2013 resolved 16 7526109 SNOMED-CT Allergies and Adverse Reactions Allergy Substance Reaction Severity Start Date Concern Status Code Code System CHLORZOXAZONE Active 2410 RxNorm MERCURY Rash (SNOMED-CT: 538968629) Moderate Active 6769 RxNorm ALLYL ISOTHIOCYANATE Active MUSTARD Rash (SNOMED-CT: 640381968) Active PARAFON FORTE DSC NAUSEA (SNOMED-CT: null) Moderate Active 573846 RxNorm APPLE Rash (SNOMED-CT: 937873699) Moderate Active STATINS (HMG-COA REDUCTASE INHIBITORS) Active Plan of Treatment Digital Haris Screen Bilateral (81633) CT Chest/Lung WO Contrast (03470) 06/23 Encounters Encounter Diagnosis Start Date Code Code Sys tem Primary osteoarthritis, left shoulder 01/25/2024 SNOMED-CT Personal Care Team Section Performer Name Performer Role Active Date Inactive Da te Imaging Narrative Notes
--- OUTSIDE RECORDS SUMMARY | 2024-11-04 10:14 | XMS_ITS ---
Author Organization Unknown Address [address] [place] [address] [phone] Phone Care Team Providers Care Surgical Device Sales Representative Name Role Phone SIA DESAI Attending Unavailable DOMENICA DESAI Primary Unavailable Immunization [...] em Smoking History Never smoker (Never Smoked) [id number] SNOMED CT Sex Female Medications Medication Start Date End Date Route Frequency Dose Code Code System Medication Instructions Home Meds Lisinopril 30MG Oral Tablet 06/25/2013 Unknown ORAL DAILY 30 MILLIGRAMS [id number] RxNorm 30 MILL IGRAMS ORAL DAILY Omeprazole 20MG Oral Capsule, Delayed Release 06/25/2013 Unknown ORAL DAILY 20 MILLIGRAMS 977299 RxNorm 20 MILL IGRAMS ORAL DAILY Clonidine 0.1MG Oral Tablet 06/25/2013 Unknown ORAL Q 12H 0.1 MILLIGRAMS 558002 RxNorm 0.1 MILLIGRAMS ORAL Q 12H Cranberry 400MG Oral Capsule 06/25/2013 Unknown ORAL Q 12H 400 MILLIGRAMS 2969135 RxNorm 400 MILLIGRAMS ORAL Q 12H Assessment [...] INSJ IO LENS PROSTH W/O ECP 04/02 [id number] 1 076 11/12/2026 ACRYSO F SN60WF POWER: +21.5D Problems Problem Start Date Resolved Date Status Code Code System PHYSICAL THERAPY EVALUATION, INITIAL active 225793116 SNOMED-CT S/P TOTAL KNEE ARTHROPLASTY active 16 7294325 SNOMED-CT S/P TOTAL KNEE REPLACEMENT 06/21/2013 resolved 16 1626148 SNOMED-CT Allergies and Adverse Reactions Allergy Substance Reaction Severity Start Date Concern Status Code Code System CHLORZOXAZONE Active 2410 RxNorm MERCURY Rash (SNOMED-CT: 295997782) Moderate Active 6769 RxNorm ALLYL ISOTHIOCYANATE Active MUSTARD Rash (SNOMED-CT: 067014327) Active PARAFON FORTE DSC NAUSEA (SNOMED-CT: null) Moderate Active 648978 RxNorm APPLE Rash (SNOMED-CT: 461879050) Moderate Active STATINS (HMG-COA REDUCTASE INHIBITORS) Active Plan of Treatment Digital Haris Screen Bilateral (47103) CT Chest/Lung WO Contrast (40780) 06/23 Encounters Encounter Diagnosis Start Date Code Code Sys tem Pain in left knee 05/31/2024 SNOMED-CT Personal Care Team Section Performer Name Performer Role Active Date Inactive Da te
--- OUTSIDE RECORDS SUMMARY | 2024-11-04 10:14 | XMS_ITS ---
Author Organization Unknown Address [address] [place] [address] [phone] Phone Care Team Providers Care Customer Support Representative Name Role Phone SIA DESAI Attending [...] em Smoking History Never smoker (Never Smoked) [id number] SNOMED CT Sex Female Medications Medication Start Date End Date Route Frequency Dose Code Code System Medication Instructions Home Meds Lisinopril 30MG Oral Tablet 06/25/2013 Unknown ORAL DAILY 30 MILLIGRAMS [id number] RxNorm 30 MILL IGRAMS ORAL DAILY Omeprazole 20MG Oral Capsule, Delayed Release 06/25/2013 Unknown ORAL DAILY 20 MILLIGRAMS 506927 RxNorm 20 MILL IGRAMS ORAL DAILY Clonidine 0.1MG Oral Tablet 06/25/2013 Unknown ORAL Q 12H 0.1 MILLIGRAMS 754827 RxNorm 0.1 MILLIGRAMS ORAL Q 12H Cranberry 400MG Oral Capsule 06/25/2013 Unknown ORAL Q 12H 400 MILLIGRAMS 4010906 RxNorm 400 MILLIGRAMS ORAL Q 12H Assessment [...] INSJ IO LENS PROSTH W/O ECP 04/02 [id number] 1 076 11/12/2026 ACRYSO F SN60WF POWER: +21.5D Problems Problem Start Date Resolved Date Status Code Code System PHYSICAL THERAPY EVALUATION, INITIAL active 639597058 SNOMED-CT S/P TOTAL KNEE ARTHROPLASTY active 16 6525030 SNOMED-CT S/P TOTAL KNEE REPLACEMENT 06/21/2013 resolved 16 9935513 SNOMED-CT Allergies and Adverse Reactions Allergy Substance Reaction Severity Start Date Concern Status Code Code System CHLORZOXAZONE Active 2410 RxNorm MERCURY Rash (SNOMED-CT: 446820074) Moderate Active 6769 RxNorm ALLYL ISOTHIOCYANATE Active MUSTARD Rash (SNOMED-CT: 240259870) Active PARAFON FORTE DSC NAUSEA (SNOMED-CT: null) Moderate Active 996202 RxNorm APPLE Rash (SNOMED-CT: 457257309) Moderate Active STATINS (HMG-COA REDUCTASE INHIBITORS) Active Plan of Treatment Digital Haris Screen Bilateral (58462) CT Chest/Lung WO Contrast (17744) 06/23 Encounters Encounter Diagnosis Start Date Code Code Sys tem Pain in left knee 05/03/2024 SNOMED-CT Personal Care Team Section Performer Name Performer Role Active Date Inactive Da te
--- OUTSIDE RECORDS SUMMARY | 2024-11-04 10:15 | XMS_ITS ---
Author Organization Unknown Address [address] [place] [address] [phone] Phone Care Team Providers Care Universal Branch Consultant Name Role Phone LYNNE MCKENZIE Attending Unavailable [...] em Smoking History Never smoker (Never Smoked) [id number] SNOMED CT Sex Female Medications Medication Start Date End Date Route Frequency Dose Code Code System Medication Instructions Home Meds Lisinopril 30MG Oral Tablet 06/25/2013 Unknown ORAL DAILY 30 MILLIGRAMS 20521103 RxNorm 30 MILL IGRAMS ORAL DAILY Omeprazole 20MG Oral Capsule, Delayed Release 06/25/2013 Unknown ORAL DAILY 20 MILLIGRAMS 016115 RxNorm 20 MILL IGRAMS ORAL DAILY Clonidine 0.1MG Oral Tablet 06/25/2013 Unknown ORAL Q 12H 0.1 MILLIGRAMS 996919 RxNorm 0.1 MILLIGRAMS ORAL Q 12H Cranberry 400MG Oral Capsule 06/25/2013 Unknown ORAL Q 12H 400 MILLIGRAMS 0700654 RxNorm 400 MILLIGRAMS ORAL Q 12H Assessment You had the following problems:PHYSICAL THERAPY EVALUATION, INITIALS/P TOTAL KNEE ARTHROPLASTY Hospital Discharge Instructions Should you have any questions prior to discharge, please contact a member of your healthcare team. If you have left the hospital and have any questions, please contact your primary care physician. Reason For Referral No Data Found Procedures Procedure Name Date Status Code Code Syste m Arthrocentesis Aspir&/Inj Ma stephanie Jt/Bursa w/o US 09/23/2024 completed CPT Implants Implanted DEV Status Assigning Authority Procedure Date Lot Number Serial Number Manufacturing Date Expiration Date Distinct ID Code Brand Name Model Number ACRYSOF IQ IOL Active XCAPSL CTRC RMVL INSJ IO LENS PROSTH W/O ECP 04/02 [id number] 1 076 11/12/2026 ACRYSO F SN60WF POWER: +21.5D Problems Problem Start Date Resolved Date Status Code Code System PHYSICAL THERAPY EVALUATION, INITIAL active 177659822 SNOMED-CT S/P TOTAL KNEE ARTHROPLASTY active 16 3416035 SNOMED-CT S/P TOTAL KNEE REPLACEMENT 06/21/2013 resolved 16 6212769 SNOMED-CT Allergies and Adverse Reactions Allergy Substance Reaction Severity Start Date Concern Status Code Code System CHLORZOXAZONE Active 2410 RxNorm MERCURY Rash (SNOMED-CT: 391472879) Moderate Active 6769 RxNorm ALLYL ISOTHIOCYANATE Active MUSTARD Rash (SNOMED-CT: 715415618) Active PARAFON FORTE DSC NAUSEA (SNOMED-CT: null) Moderate Active 230174 RxNorm APPLE Rash (SNOMED-CT: 375309676) Moderate Active STATINS (HMG-COA REDUCTASE INHIBITORS) Active Plan of Treatment Digital Haris Screen Bilateral (03955) CT Chest/Lung WO Contrast (65326) 06/23 Encounters Encounter Diagnosis Start Date Code Code Sys tem Primary osteoarthritis, left shoulder 09/23/2024 SNOMED-CT Personal Care Team Section Performer Name Performer Role Active Date Inactive Da travis
--- OUTSIDE RECORDS SUMMARY | 2024-11-04 10:15 | XMS_ITS | Patient Health Record ---
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) 3 Active confirmed Problem Old myocardial infarction (7696599) Old myocardial infarction (I25.2) 3 Active confirmed Problem Peripheral vascular disease (098674229) Other specified peripheral vascular diseases (I73.89) 3 Active confirmed Problem Callosity (924964181) Corns and callosities (L84) 3 Active confirmed Problem Essential hypertension (74613028) Essential (primary) hypertension (I10) 3 Active confirmed Vital Signs Height-cm 160.02 cm 06/02/2024 Weight-kg 104.33 kg 06/02/2024 Height 63 in 06/02/2024 Weight 230 lbs 06/02/2024 BMI 40.74 kg/m2 06/02/2024 Encounters Encounter Location Date Provider Diagnosis [employer] [facility] [address] [place] [address] 06/02/2024 KATIE PETERSON Tinea unguium B35.1 ; Other specified peripheral vascular diseases I73.89 and Corns and callosities L84 Assessments Encounter Date Diagnosis (ICD Code) Assessment Notes Treatment Notes Treatment Clinical Notes Section Notes 06/02/2024 Tinea unguium (ICD-10 - B35.1) 06/02/2024 Other specified peripheral vascular diseases (ICD-10 - I73.89) We discussed preventative foot care. We discussed preventative foot hygiene. We instructed the patient on how to care for their feet, and to contact the office if any wounds develop, or signs of infection arise. The nails were debrided of all fungal material and debris. Debridement included a reduction in bulk of the nail by use of a sharp button cutter and/or rotary instrument. Reason for debridement include relief of pain, treatment of infection, temporary removal of an anatomic deformity such as onychauxis or onychocryptosis, exposure of subungual conditions for the purpose of treatment as well as diagnosis, and/or as a prophylactic measure to prevent further problems, such as subungual ulceration in an insensate patient with onychauxis. Antiseptic was applied. Debrided 10 nails. The hyperkeratotic lesions were sharply pared. The callus or corns pared are not associated within the toenail complex and are proximal to the interphalangeal joint or are proximal to the distal phalanx. The services performed were on separate sites and not located on a toe. Antiseptic was applied. Pared four hyperkeratotic lesions that are on separate sites of service and not located on a toe. 06/02/2024 Corns and callosities (ICD-10 - L84) Plan Of Treatment No Information Insurance Providers Payer Name Payer Address Payer Phone Subscriber Number Group Number Insured Name Patient Relationship to Insured Coverage Start Date Coverage End Date [employer] MED[employer]ARE [address] [place] [id number] [place] [address] [id number] [place] Self - patient is the insured
--- OUTSIDE RECORDS SUMMARY | 2024-11-04 10:15 | XMS_ITS ---
Author Organization Unknown Address [address] [place] [address] [phone] Phone Care Team Providers Care Teacher Assistant Name Role Phone LYNNE MCKENZIE Attending Unavailable [...] em Smoking History Never smoker (Never Smoked) [id number] SNOMED CT Sex Female Medications Medication Start Date End Date Route Frequency Dose Code Code System Medication Instructions Home Meds Lisinopril 30MG Oral Tablet 06/25/2013 Unknown ORAL DAILY 30 MILLIGRAMS 20521103 RxNorm 30 MILL IGRAMS ORAL DAILY Omeprazole 20MG Oral Capsule, Delayed Release 06/25/2013 Unknown ORAL DAILY 20 MILLIGRAMS 236862 RxNorm 20 MILL IGRAMS ORAL DAILY Clonidine 0.1MG Oral Tablet 06/25/2013 Unknown ORAL Q 12H 0.1 MILLIGRAMS 543815 RxNorm 0.1 MILLIGRAMS ORAL Q 12H Cranberry 400MG Oral Capsule 06/25/2013 Unknown ORAL Q 12H 400 MILLIGRAMS 5337374 RxNorm 400 MILLIGRAMS ORAL Q 12H Assessment [...] INSJ IO LENS PROSTH W/O ECP 04/02 [id number] 1 076 11/12/2026 ACRYSO F SN60WF POWER: +21.5D Problems Problem Start Date Resolved Date Status Code Code System PHYSICAL THERAPY EVALUATION, INITIAL active 233207661 SNOMED-CT S/P TOTAL KNEE ARTHROPLASTY active 16 5241306 SNOMED-CT S/P TOTAL KNEE REPLACEMENT 06/21/2013 resolved 16 7744487 SNOMED-CT Allergies and Adverse Reactions Allergy Substance Reaction Severity Start Date Concern Status Code Code System CHLORZOXAZONE Active 2410 RxNorm MERCURY Rash (SNOMED-CT: 478180126) Moderate Active 6769 RxNorm ALLYL ISOTHIOCYANATE Active MUSTARD Rash (SNOMED-CT: 255660044) Active PARAFON FORTE DSC NAUSEA (SNOMED-CT: null) Moderate Active 007315 RxNorm APPLE Rash (SNOMED-CT: 933047606) Moderate Active STATINS (HMG-COA REDUCTASE INHIBITORS) Active Plan of Treatment Digital Haris Screen Bilateral (92816) CT Chest/Lung WO Contrast (41895) 06/23 Encounters Encounter Diagnosis Start Date Code Code Sys tem Idiopathic osteoarthritis 09/29/2024 001856211 SN OMED-CT Personal Care Team Section Performer Name Performer Role Active Date Inactive Da te
--- OUTSIDE RECORDS SUMMARY | 2024-11-04 10:17 | XMS_ITS ---
Author Organization Unknown Address [address] [place] [address] [phone] Phone Care Team Providers Care Continuity Coordinator Name Role Phone LYNNE MCKENZIE Attending Unavailable [...] trivalent, PF 06/12/2012 Completed 135 CVX Results KNEE 1-2V LEFT - Completed: 03/18/2024 10:23 LOINC: EXAM DESCRIPTION: ? ? KNEE 1-2V LEFT; ? ? KNEE 1-2V RIGHT REASON FOR STUDY: Pain, hx of arthritis Duration: chronic, worse recently Previous Surgery: bilat knee replacement FINDINGS: Two views each knee submitted without comparison. 2 component bilateral knee arthroplasties are in near anatomic alignment. There no fractures or evidence of loosening. Small knee effusions are present. Arterial atherosclerosis is present. IMPRESSION: ? ? 2 component bilateral knee arthroplasties in near anatomic alignment. THIS IS AN ELECTRONICALLY VERIFIED FINAL REPORT 03/18/2024 10:03 PM - Electronically signed by Jamaal Sahu M.D. MF: [id number] Report ID: [id number] Reading Location: [place] [address] KNEE 1-2V RIGHT - Completed: 03/18/2024 10:23 LOINC: EXAM DESCRIPTION: ? ? KNEE 1-2V LEFT; ? ? KNEE 1-2V RIGHT REASON FOR STUDY: Pain, hx of arthritis Duration: chronic, worse recently Previous Surgery: bilat knee replacement FINDINGS: Two views each knee submitted without comparison. 2 component bilateral knee arthroplasties are in near anatomic alignment. There no fractures or evidence of loosening. Small knee effusions are present. Arterial atherosclerosis is present. IMPRESSION: ? ? 2 component bilateral knee arthroplasties in near anatomic alignment. THIS IS AN ELECTRONICALLY VERIFIED FINAL REPORT 03/18/2024 10:03 PM - Electronically signed by Jamaal Sahu M.D. MF: [id number] Report ID: [id number] Reading Location: [id number] Social History Type Status Start Date End Date Code Code Syst em Smoking History Never smoker (Never Smoked) 741133037 SNOMED CT Sex Female Medications Medication Start Date End Date Route Frequency Dose Code Code System Medication Instructions Home Meds Lisinopril 30MG Oral Tablet 06/25/2013 Unknown ORAL DAILY 30 MILLIGRAMS 20521103 RxNorm 30 MILL IGRAMS ORAL DAILY Omeprazole 20MG Oral Capsule, Delayed Release 06/25/2013 Unknown ORAL DAILY 20 MILLIGRAMS 209612 RxNorm 20 MILL IGRAMS ORAL DAILY Clonidine 0.1MG Oral Tablet 06/25/2013 Unknown ORAL Q 12H 0.1 MILLIGRAMS 075326 RxNorm 0.1 MILLIGRAMS ORAL Q 12H Cranberry 400MG Oral Capsule 06/25/2013 Unknown ORAL Q 12H 400 MILLIGRAMS 4562407 RxNorm 400 MILLIGRAMS ORAL Q 12H Assessment [...] INSJ IO LENS PROSTH W/O ECP 04/02 0954907 1 076 11/12/2026 ACRYSO F SN60WF POWER: +21.5D Problems Problem Start Date Resolved Date Status Code Code System PHYSICAL THERAPY EVALUATION, INITIAL active 751696337 SNOMED-CT S/P TOTAL KNEE ARTHROPLASTY active 16 8797067 SNOMED-CT S/P TOTAL KNEE REPLACEMENT 06/21/2013 resolved 7030112 SNOMED-CT Allergies and Adverse Reactions Allergy Substance Reaction Severity Start Date Concern Status Code Code System CHLORZOXAZONE Active 2410 RxNorm MERCURY Rash (SNOMED-CT: 191961288) Moderate Active 6769 RxNorm ALLYL ISOTHIOCYANATE Active MUSTARD Rash (SNOMED-CT: 958888025) Active PARAFON FORTE DSC NAUSEA (SNOMED-CT: null) Moderate Active 205225 RxNorm APPLE Rash (SNOMED-CT: 641621648) Moderate Active STATINS (HMG-COA REDUCTASE INHIBITORS) Active Plan of Treatment Digital Haris Screen Bilateral (98549) CT Chest/Lung WO Contrast (07689) 06/23 Encounters Encounter Diagnosis Start Date Code Code Sys tem Primary osteoarthritis, left shoulder 03/18/2024 SNOMED-CT Personal Care Team Section Performer Name Performer Role Active Date Inactive Da te Imaging Narrative Notes
--- OUTSIDE RECORDS SUMMARY | 2024-11-04 10:17 | XMS_ITS ---
Author Organization [facility] Address [address] [place] [address] Care Team Providers Care Line Out Worker Name Role Phone CAROLINEVIPUL KATIE Unavailable [phone] Mariaelena Elder Unavailable Unavailable REASON FOR VISIT PVD Vital Signs Height 63 in 06/02/2024 Weight 230 lbs 06/02/2024 BMI 40.74 kg/m2 06/02/2024 Height-cm 160.02 cm 06/02/2024 Weight-kg 104.33 kg 06/02/2024 Encounters Encounter Location Date Provider Diagnosis [facility] [address] [place] [address] 06/02/2024 KATIE PETERSON Tinea unguium B35.1 ; [...] the nail by use of a sharp bog cutter and/or rotary instrument. Reason for debridement [...] callosities (ICD-10 - L84) Plan Of Treatment Treatment Notes Assessment Notes Other specified peripheral v ascular diseases We discussed preventative foot care. We discussed preventative foot hygiene. We instructed the patient on how to care for their feet, and to contact the office if any wounds develop, or signs of infection arise. The nails were debrided of all fungal material and debris. Debridement included a reduction in bulk of the nail by use of a sharp bog cutter and/or rotary instrument. Reason for debridement [...] service and not located on a toe. Next Appt Details Follow Up: 2 Months, Reason: palliation Progress Notes * EVI BAY LDOB: [birth year] (88 yo F)Acc No.[id number]:06/02/2024 Patient: EVI TAY Provider: Michelle Peterson DPM :1935 A ge:88 Y S ex:Female Date:06/02/2024 Address: [address], [id number] Subjective: * Chief Complaints: * P VD * HPI: N ails: The patient relates t o having difficulty trimming their nails, that all of their nails are thickened, that all of their nails are discolored. Relates she also gets calluses on or around her toes. * ROS: G eneral / Constitutional: Patient denies c hills, fatigue, fever, headache. ? E NT: Patient denies s ore throat, sinus pain. R espiratory: Patient denies c ough, chest pain, shortness of breath.? C ardiovascular: Patient denies p alpitations, chest pain with exertion.? G astrointestinal: Patient denies a bdominal pain, constipation, diarrhea, vomiting, nausea. * Medical History: * Surgical History: * Hospitalization/Major Diagno stic Procedure: * Social History: M igrated Social History: M igrated Social History: Smoking : Never , Recorded Date: 10/08/2022. * Medications: Objective: * Vitals: H t: 63 in, Wt: 230 lbs, BMI: 40.74 Index, Wt-k.33 kg, Ht-cm: 160.02 cm, Body Surface Area: 2.15. * Examination: D ermatologic: Skin findings: b ilateral, cool and dry, no open ulcerations or interdigital macerations. Nail pathology: d igits 1-5, bilateral, discolored, thickened, with onychodystrophy, with subungual debris. Hypertrophic / hyperkeratotic lesion: p lantar first metatarsal head left, dorsal proximal interphalangeal joint fourth digit bilateral and third digit left..? V ascular: Dorsalis pedis pulse: 1 /4, bilateral. Posterior tibial pulse: 0 /4, bilateral. Capillary refill: s lightly delayed, bilaterally. ? N eurologic: Gross sensation i ntact. C lass Findings: Class C Findings (Q9) A bsent posterior tibial pulse right, Absent posterior tibial pulse left, Nail thickening, Hair decreased or absent, Pt complains of edema, Pt complains of cold feet. M usculoskeletal: Gait: n on antalgic. Foot morphology: n ormal. Joint range of motion: b ilateral, ankle, with decreased range of motion. Pain elicited with palpation of: n o noted pain on palpation. Pain elicited with range of motion: n o noted pain with range of motion. Assessment: * Assessment: 1. O ther specified peripheral vascular diseases - I73.89 (Primary) 2 . T inea unguium - B35.1 3 . C orns and callosities - L84, Src Problem: Corns and callus Plan: * Treatment: * Procedure Codes: 1 1721 DEBRIDE NAIL, 6 OR MORE, Modifiers: Q9 66511 TRIM SKIN LESIONS, 2 TO 4, Modifiers: Q9 * Follow Up: 2 Months (Reason: palliation) * Billing Information: * Visit Code: * Procedure Codes: 22531 DEBRIDE NAIL, 6 OR MORE. Modifiers: Q9 57169 TRIM SKIN LESIONS, 2 TO 4. Modifiers: Q9 * Sign off status: Completed true * Provider: Michelle Peterson DPM Date: 0 06/02/2024 Generated for Mayra cole/Schuyler/Eli on: 0 11/04/2024 10:17 AM [employer] History and Physical Notes * HPI (History of Present Illness) Category Sub-Category Detail Notes Category Not es Nails The patient relates to having di fficulty trimming their nails, that all of their nails are thickened, that all of their nails are discolored Relates she also gets calluses on or around her toes. Examination Category Sub-Category Detail Notes Category Not es Dermatologic Skin findings: bilateral, cool and dry, no open ulcerations or interdigital macerations Nail pathology: digits 1-5, bilatera l, discolored, thickened, with onychodystrophy, with subungual debris Hypertrophic / hyperkeratotic lesion: pl jolynn first metatarsal head left, dorsal proximal interphalangeal joint fourth digit bilateral and third digit left. Neurologic Gross sensation intact Musculoskeletal Gait: non antalgic Foot morphology: normal Joint range of motion: bilateral, ankle, with decreased range of motion Pain elicited with palpation of: no note d pain on palpation Pain elicited with range of motion: no n oted pain with range of motion Vascular Dorsalis pedis pulse: 1/4, bilateral Capillary refill: slightly delayed, bi laterally Posterior tibial pulse: 0/4, bilateral Class Findings Class C Findings (Q9) Absent pos terior tibial pulse right, Absent posterior tibial pulse left, Nail thickening, Hair decreased or absent, Pt complains of edema, Pt complains of cold feet
--- OUTSIDE RECORDS SUMMARY | 2024-11-04 10:17 | XMS_ITS ---
Author Organization Unknown Address [address] [place] [address] [phone] Phone Care Team Providers Care Change Management Director Name Role Phone LYNNE MCKENZIE Attending Unavailable [...] em Smoking History Never smoker (Never Smoked) 479585654 SNOMED CT Sex Female Medications Medication Start Date End Date Route Frequency Dose Code Code System Medication Instructions Home Meds Lisinopril 30MG Oral Tablet 06/25/2013 Unknown ORAL DAILY 30 MILLIGRAMS 20521103 RxNorm 30 MILL IGRAMS ORAL DAILY Omeprazole 20MG Oral Capsule, Delayed Release 06/25/2013 Unknown ORAL DAILY 20 MILLIGRAMS 199839 RxNorm 20 MILL IGRAMS ORAL DAILY Clonidine 0.1MG Oral Tablet 06/25/2013 Unknown ORAL Q 12H 0.1 MILLIGRAMS 911015 RxNorm 0.1 MILLIGRAMS ORAL Q 12H Cranberry 400MG Oral Capsule 06/25/2013 Unknown ORAL Q 12H 400 MILLIGRAMS 8687495 RxNorm 400 MILLIGRAMS ORAL Q 12H Assessment [...] INSJ IO LENS PROSTH W/O ECP 04/02 4052319 1 076 11/12/2026 ACRYSO F SN60WF POWER: +21.5D Problems Problem Start Date Resolved Date Status Code Code System PHYSICAL THERAPY EVALUATION, INITIAL active 882851196 SNOMED-CT S/P TOTAL KNEE ARTHROPLASTY active 16 7694485 SNOMED-CT S/P TOTAL KNEE REPLACEMENT 06/21/2013 resolved 16 6194858 SNOMED-CT Allergies and Adverse Reactions Allergy Substance Reaction Severity Start Date Concern Status Code Code System CHLORZOXAZONE Active 2410 RxNorm MERCURY Rash (SNOMED-CT: 238882995) Moderate Active 6769 RxNorm ALLYL ISOTHIOCYANATE Active MUSTARD Rash (SNOMED-CT: 333045206) Active PARAFON FORTE DSC NAUSEA (SNOMED-CT: null) Moderate Active 903592 RxNorm APPLE Rash (SNOMED-CT: 735650730) Moderate Active STATINS (HMG-COA REDUCTASE INHIBITORS) Active Plan of Treatment Digital Haris Screen Bilateral (67463) CT Chest/Lung WO Contrast (78699) 06/23 Encounters Encounter Diagnosis Start Date Code Code Sys tem Primary osteoarthritis, left shoulder 07/08/2024 SNOMED-CT Personal Care Team Section Performer Name Performer Role Active Date Inactive Da te
--- OUTSIDE RECORDS SUMMARY | 2024-11-04 10:18 | XMS_ITS ---
Author Organization Unknown Address [address] [place] [address] [phone] Phone Care Team Providers Care Lacing String Cutter Name Role Phone MEGAN Boucher MEDARDO Attending Unavailable DOMENICA DESAI Primary Unavailable Immunization [...] trivalent, PF 06/12/2012 Completed 135 CVX Results COMPREHENSIVE METABOLIC PANE L - Collect Date/Time: 11/04/2024 09:18 [facility] ID: [id number] [address] [place], [place], [phone] LOINC: 77162-1 Test Value Unit Reference Range Code Code System Flag FASTING UNKNOWN BUN 16 mg/dL L=7 H=20 3094-0 LOINC CREATININE 0.80 mg/dL L=0.52 H=1.04 2160-0 LOINC GLUCOSE 95 mg/dL L=74 H=106 2345-7 LOINC SODIUM 137 mmol/L L=132 H=144 2951-2 LOINC POTASSIUM 4.0 mmol/L L=3.5 H=5.1 2823-3 LOINC CHLORIDE 98 mmol/L L=98 H=107 2075-0 LOINC CO2 32.0 mmol/L L=22.0 H=30.0 2028-9 LOINC H ANION GAP 11 L=10 H=20 02082-7 LOINC OSMOLALITY 285 mOs/kG L=280 H=296 46553-3 LOINC BUN/CREAT 20.0 3097-3 LOINC CALCIUM 9.7 mg/dL L=8.3 H=10.5 15537-7 LOINC AST 36 U/L L=15 H=46 1920-8 LOINC ALT 19 U/L L=9 H=72 1742-6 LOINC ALKALINE PHOS 51 U/L L=38 H=126 6768-6 LOINC TOTAL BILI 0.9 mg/dL L=0.2 H=1.3 1975-2 LOINC ALBUMIN 3.6 G/dL L=3.5 H=5.0 1751-7 LOINC TOTAL PROTEIN 6.0 g/L L=6.3 H=8.2 2885-2 LOINC L A/G RATIO 1.5 56872-4 LOINC AGE 89 52769-0 LOINC eGFR NON-AFR 72 ml/min eGFR AFR AMER 87 ml/min TROPONIN LEVEL - Collect Brown e/Time: 11/04/2024 09:18 [facility] ID: [id number] [address] [place] [address], [phone] LOINC: 58141-1 Test Value Unit Reference Range Code Code System Flag TROPONIN 0.012 ng/mL L=0.000 H=0.033 49936-1 LOINC CBC W/ DIFF - Collect Date/T liset: 11/04/2024 09:18 [facility] ID: [id number] [address] [place] [address], [phone] LOINC: 22716-1 Test Value Unit Reference Range Code Code System Flag WBC 6.1 10^3uL L=4.8 H=10.8 RBC 4.67 10^6uL L=4.20 H=5.40 HEMOGLOBIN 13.4 g/dL L=12.0 H=16.0 718-7 LOINC HEMATOCRIT 40.7 VOL% L=37.0 H=47.0 4544-3 LOINC MCV 87.2 fL L=81.0 H=99.0 MCH 28.7 pg L=27.0 H=32.0 MCHC 32.9 g/dL L=32.0 H=36.0 PLATELETS 161 10^3uL L=100 H=400 21849-2 LOINC RDW 14.5 % L=11.7 H=15.5 %GRAN 70.8 % L=40.0 H=70.0 25037-9 LOINC H %LYMPH 17.6 % L=20.0 H=45.0 736-9 LOINC L %MONO 8.8 % L=2.0 H=10.0 86272-1 LOINC %EOS 2.1 % L=0.0 H=6.0 713-8 LOINC %BASO 0.5 % L=0.0 H=3.0 706-2 LOINC #NEUT 4.3 10^3uL L=1.9 H=7.6 80067-6 LOINC #LYMPH 1.1 10^3uL L=0.9 H=4.9 86304-2 LOINC #MONO 0.5 10^3uL L=0.1 H=0.9 33107-7 LOINC #EOS 0.1 10^3uL L=0.0 H=0.6 712-0 LOINC #BASO 0.03 10^3uL L=0.00 H=0.10 11839-9 LOINC #IM GRANS 0.0 10^3uL L=0.0 H=7.0 90685-5 LOINC %IM GRANS 0.2 % L=0.0 H=5.0 41144-7 LOINC %NRB 0.0 L=0.0 H=0.2 43311-4 LOINC #NRB 0.000 L=0.000 H=0.012 52352-3 LOINC MANUAL DIFF NOT INDICATED RBC MORPH NOT INDICATED Social History Type Status Start Date End Date Code Code Syst em Smoking History Never smoker (Never Smoked) 229761281 SNOMED CT Sex Female Medications Medication Start Date End Date Route Frequency Dose Code Code System Medication Instructions Home Meds Lisinopril 30MG Oral Tablet 06/25/2013 Unknown ORAL DAILY 30 MILLIGRAMS 838409 RxNorm 30 MILL IGRAMS ORAL DAILY Omeprazole 20MG Oral Capsule, Delayed Release 06/25/2013 Unknown ORAL DAILY 20 MILLIGRAMS 701775 RxNorm 20 MILL IGRAMS ORAL DAILY Clonidine 0.1MG Oral Tablet 06/25/2013 Unknown ORAL Q 12H 0.1 MILLIGRAMS 790006 RxNorm 0.1 MILLIGRAMS ORAL Q 12H Cranberry 400MG Oral Capsule 06/25/2013 Unknown ORAL Q 12H 400 MILLIGRAMS 2087650 RxNorm 400 MILLIGRAMS ORAL Q 12H Assessment [...] INSJ IO LENS PROSTH W/O ECP 04/02 6032308 1 076 11/12/2026 ACRYSO F SN60WF POWER: +21.5D Problems Problem Start Date Resolved Date Status Code Code System PHYSICAL THERAPY EVALUATION, INITIAL active 316817655 SNOMED-CT S/P TOTAL KNEE ARTHROPLASTY active 16 7305339 SNOMED-CT S/P TOTAL KNEE REPLACEMENT 06/21/2013 resolved 16 4336344 SNOMED-CT Allergies and Adverse Reactions Allergy Substance Reaction Severity Start Date Concern Status Code Code System CHLORZOXAZONE Active 2410 RxNorm MERCURY Rash (SNOMED-CT: 821414117) Moderate Active 6769 RxNorm ALLYL ISOTHIOCYANATE Active MUSTARD Rash (SNOMED-CT: 833009044) Active PARAFON FORTE DSC NAUSEA (SNOMED-CT: null) Moderate Active 731313 RxNorm APPLE Rash (SNOMED-CT: 682050995) Moderate Active STATINS (HMG-COA REDUCTASE INHIBITORS) Active Plan of Treatment URINALYSIS w/Microscopy/C&S if indicated 2024 LOINC: 11428-7 Digital Haris Screen Bilateral (37402) CT Chest/Lung WO Contrast (79323) 06/23 Personal Care Team Section Performer Name Performer Role Active Date Inactive Da te
--- OUTSIDE RECORDS SUMMARY | 2024-11-04 10:18 | XMS_ITS | Clinical Summary ---
Author Organization [facility] Address [address] [place] [address] Care Team Providers Care Gas Welding Machine Operator Name Role Phone Mariaelena Elder MD Primary Care Provider [phone] Augusto Mcguire MD Unavailable Unavailable Anastasia Leon MD Unavailable Allergies Active Allergy Reactions Criticality Noted Date Comments Allyl Isothiocyanate Rash Low 03/12/2016 Apple Juice Unknown 03/12/2016 Chlorzoxazone Unknown 03/12/2016 Statins Unknown 03/12/2016 Medications Lactobacillus (ACIDOPHILUS) Cap Acidophilus (lactobacillus acidophilus) capsule ; take 1 tablet by mouth at bedtime; 0; 12-Jan-2014; Active 4 Active vitamin C 500 MG tablet Take 1 tablet by mouth daily. 4 Active aspirin EC (ASPIRIN) 81 MG EC tablet Take by mouth daily. 2 Active Cranberry 450 MG Cap Take 2 tablets by mouth 2 (two) times daily. 2 Active Multiple Vitamins-Minera ls (CENTRUM SILVER ULTRA MENS) Tab Take 1 tablet by mouth daily. 4 Active chlorthalidone 50 MG tablet Take 1 tablet by mouth daily. 4 Active cloNIDine 0.1 MG tablet Take 1 tablet by mouth 2 (two) times daily. 2 Active rosuvastatin (CRESTOR) 20 MG tablet Crestor (rosuvastatin) tablet 20 mg; take 1 tablet by mouth every evening; 0; 12-Jan-2014; Active 4 Active lisinopril 30 MG tablet Take 1 tablet by mouth daily. 4 Active omeprazole 20 MG capsule Take by mouth daily. 5 Active ropinirole 0.5 MG tablet ropinirole 1 tab daily 4 Active metoprolol succinate (TOPROL XL) 50 MG 24 hr tablet Toprol XL (metoprolol succinate) Tablet Sustained Release 24 hr 50 mg; take 2 tablets in the am and 1 tablet in the pm; 3; 21-Jan-2012; Active 2 Active Cholecalciferol (VITAMIN D3) 2000 units Tab Take by mouth daily. Active Calcium Carbonate (TUMS 500 OR)Indications: 2 tabs daily Active methylcellulose (CITRUCEL) 500 MG tabletIndicatio ns:2 tabs twice a day Take 1,000 mg by mouth as needed. 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 Carotid stenosis, asymptomatic, left 03/12/2016 Resolved Problems Problem Noted Date Diagnosed Date Resolved Date CPAP use counseling 02/01/2019 06/08/20 20 Other and unspecified hyperlipidemia 03/12/2016 05/27/2017 Overview (03/12/2016): hyperlipidemia Heart attack ([facility]) 03/12/2016 05/27/2017 Overview (03/12/2016): anteroapical [place], normal coronary arteries Essential hypertension 03/12/201605/27 Glaucoma 03/12/2016 03/12/2016 Family History Medical History Relation Comments Heart Failure Father Pneumonia Father Suicide Mother Cause of Coronary artery disease Neg Hx Relation Status Comments Father (Age 94) Mother (Age 38) Sister Alive Is alive and wel l Social History Tobacco Use Types Packs/Day Years Used Date Smoking Tobacco: Never Smokeless Tobacco: Never Alcohol Use Standard Drinks/Week Comments Yes 0 (1 standard drink = 0.6 oz pur e alcohol) Social Comments Unknown Sex and Gender Information Value Date Recorded Sex Assigned at Not on file Legal Sex Female 8:50 PM CDT Gender Identity Not on file Sexual Orientation Not on file 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 Not on file Not on file Last Filed Vital Signs Vital Sign Reading Time Taken Comments Blood Pressure 126/59 06/04/2023 9:21 AM CDT Pulse 74 05/22/2022 3:36 PM CDT Temperature - - Respiratory Rate 20 05/22/2022 3:36 PM CDT Oxygen Saturation 96% 05/22/2022 3:36 PM CDT Inhaled Oxygen Concentration - - Weight 93.4 kg (206 lb) 05/22/2022 3:36 PM CDT Height 157.5 cm (5' 2 ) 05/22/2022 3:36 PM CDT Body Mass Index 37.68 05/22/2022 3:36 PM CDT Plan of Treatment Upcoming Encounters Date Type Department Care Team (Late st Contact Info) Description 06/29/2025 11:15 AM CDT Office Visit [facility] [address] Anastasia Leon MD [address] [place] [phone] Arrived Health Maintenance Due Date Last Done Comments DTaP, Tdap and Td Vaccines (1 - Tdap) 1954 Annual Medicare Wellness Visit 2000 RSV Immunization or 60+ Years (1 - 1-dose 75+ series) 2010 Zoster Vaccines (2 of 3) 11/23/2014 09/28/2014 COVID-19 Vaccine ( season) 2024 07/10/2022, 02/17/2022, 08/24/2021, Additional history exists Influenza Adult (#1) 2024 08/29/2019, 09/07/2018, 08/04/2017, Additional history exists Pneumococcal Vaccine: 65+ Years Completed 07/13/2023, 06/28/2015, 12/05/2014, Additional history exists Meningococcal B Vaccine Aged Out No l onger eligible based on patient's age to complete this topic Meningococcal Vaccine Aged Out No abdirahman camacho eligible based on patient's age to complete this topic RSV Immunizations Under 20 Months Aged Out No longer eligible based on patient's age to complete this topic Insurance [employer] Advance Directives Documents on File Type Date Recorded Patient Yard Truck Driver Expl anation Advance Directives and Living Will 10/13/2024 9:38 AM Power of Feed Mill Manager 10/13/2024 9:38 AM 12/31 - HIEU FUENTES, [facility]-DAUGHTER; JAMAAL MAXWELL,1ST ALTERNATE [facility]-SON; Healthcare Agents on File Name Relationship Healthcare Agent Relationship Communication Hieu Fuentes ([facility]) Daughter Health Care Agent Jamaal Alberts Son First Alternate Health Care Agent Care Teams Gas Welding Machine Operator Relationship Specialty [place] [address] [place] [address] PCP - General INTERNAL MEDICINE 03/12/16 [place] [address] [place] [address] Vascular/White Spooler CARDIOVASCULAR DISEASE 03/12/16 Anastasia Leon MD [address] [place] [address] Consulting Physician CARDIOVASCULAR DISEASE 03/25/21
--- OUTSIDE RECORDS SUMMARY | 2024-11-04 10:19 | XMS_ITS ---
Author Organization Unknown Address [address] [place] [phone] Phone Care Team Providers Care Entertainment & Media Correspondent Name Role Phone LYNNE MCKENZIE Attending Unavailable [...] em Smoking History Never smoker (Never Smoked) 831228035 SNOMED CT Sex Female Medications Medication Start Date End Date Route Frequency Dose Code Code System Medication Instructions Home Meds Lisinopril 30MG Oral Tablet 06/25/2013 Unknown ORAL DAILY 30 MILLIGRAMS 20521103 RxNorm 30 MILL IGRAMS ORAL DAILY Omeprazole 20MG Oral Capsule, Delayed Release 06/25/2013 Unknown ORAL DAILY 20 MILLIGRAMS 826441 RxNorm 20 MILL IGRAMS ORAL DAILY Clonidine 0.1MG Oral Tablet 06/25/2013 Unknown ORAL Q 12H 0.1 MILLIGRAMS 839365 RxNorm 0.1 MILLIGRAMS ORAL Q 12H Cranberry 400MG Oral Capsule 06/25/2013 Unknown ORAL Q 12H 400 MILLIGRAMS 8001010 RxNorm 400 MILLIGRAMS ORAL Q 12H Assessment [...] INSJ IO LENS PROSTH W/O ECP 04/02 1587833 1 076 11/12/2026 ACRYSO F SN60WF POWER: +21.5D Problems Problem Start Date Resolved Date Status Code Code System PHYSICAL THERAPY EVALUATION, INITIAL active 498603193 SNOMED-CT S/P TOTAL KNEE ARTHROPLASTY active 16 0937100 SNOMED-CT S/P TOTAL KNEE REPLACEMENT 06/21/2013 resolved 16 6695284 SNOMED-CT Allergies and Adverse Reactions Allergy Substance Reaction Severity Start Date Concern Status Code Code System CHLORZOXAZONE Active 2410 RxNorm MERCURY Rash (SNOMED-CT: 797557111) Moderate Active 6769 RxNorm ALLYL ISOTHIOCYANATE Active MUSTARD Rash (SNOMED-CT: 524448622) Active PARAFON FORTE DSC NAUSEA (SNOMED-CT: null) Moderate Active 578210 RxNorm APPLE Rash (SNOMED-CT: 289471393) Moderate Active STATINS (HMG-COA REDUCTASE INHIBITORS) Active Plan of Treatment Digital Haris Screen Bilateral (41185) CT Chest/Lung WO Contrast (71801) 06/23 Encounters Encounter Diagnosis Start Date Code Code Sys tem Primary osteoarthritis, left shoulder 07/29/2024 SNOMED-CT Personal Care Team Section Performer Name Performer Role Active Date Inactive Da te
--- OUTSIDE RECORDS SUMMARY | 2024-11-04 10:19 | XMS_ITS ---
Author Organization Unknown Address [address] [place] [address] [phone] Phone Care Team Providers Care Beam Worker Name Role Phone LYNNE MCKENZIE Attending Unavailable [...] em Smoking History Never smoker (Never Smoked) 298209353 SNOMED CT Sex Female Medications Medication Start Date End Date Route Frequency Dose Code Code System Medication Instructions Home Meds Lisinopril 30MG Oral Tablet 06/25/2013 Unknown ORAL DAILY 30 MILLIGRAMS 20521103 RxNorm 30 MILL IGRAMS ORAL DAILY Omeprazole 20MG Oral Capsule, Delayed Release 06/25/2013 Unknown ORAL DAILY 20 MILLIGRAMS 198331 RxNorm 20 MILL IGRAMS ORAL DAILY Clonidine 0.1MG Oral Tablet 06/25/2013 Unknown ORAL Q 12H 0.1 MILLIGRAMS 284286 RxNorm 0.1 MILLIGRAMS ORAL Q 12H Cranberry 400MG Oral Capsule 06/25/2013 Unknown ORAL Q 12H 400 MILLIGRAMS 9500182 RxNorm 400 MILLIGRAMS ORAL Q 12H Assessment [...] INSJ IO LENS PROSTH W/O ECP 04/02 7721389 1 076 11/12/2026 ACRYSO F SN60WF POWER: +21.5D Problems Problem Start Date Resolved Date Status Code Code System PHYSICAL THERAPY EVALUATION, INITIAL active 965659528 SNOMED-CT S/P TOTAL KNEE ARTHROPLASTY active 16 5657434 SNOMED-CT S/P TOTAL KNEE REPLACEMENT 06/21/2013 resolved 16 6979805 SNOMED-CT Allergies and Adverse Reactions Allergy Substance Reaction Severity Start Date Concern Status Code Code System CHLORZOXAZONE Active 2410 RxNorm MERCURY Rash (SNOMED-CT: 880224171) Moderate Active 6769 RxNorm ALLYL ISOTHIOCYANATE Active MUSTARD Rash (SNOMED-CT: 647505280) Active PARAFON FORTE DSC NAUSEA (SNOMED-CT: null) Moderate Active 793849 RxNorm APPLE Rash (SNOMED-CT: 688411946) Moderate Active STATINS (HMG-COA REDUCTASE INHIBITORS) Active Plan of Treatment Digital Haris Screen Bilateral (33780) CT Chest/Lung WO Contrast (09331) 06/23 Encounters Encounter Diagnosis Start Date Code Code Sys tem Bilateral primary osteoarthritis of knee 08/29/2024 SNOMED-CT Personal Care Team Section Performer Name Performer Role Active Date Inactive Da te
--- OUTSIDE RECORDS SUMMARY | 2024-11-04 10:19 | XMS_ITS ---
Author Organization Unknown Address [address] [place] [phone] Phone Care Team Providers Care Employee Benefits Insurance Agent Name Role Phone DOMENICA DESAI Attending Unavailable [...] trivalent, PF 06/12/2012 Completed [address] CHEST/LUNG WO CONTRAST - Completed: 06/23/2024 14:43 LOINC: EXAM DESCRIPTION: CT CHEST/LUNG WO CONTRAST REASON FOR STUDY: hiatal hernia cough PT unable to raise arms above head Duration: 2 weeks TECHNIQUE: Multiplanar computed tomographic imaging of the thorax. Automated exposure control was used as a dose optimization technique for this study. COMPARISON: None. FINDINGS: There is apical, basilar and peripheral scarring. Trachea is midline. Central airways are patent. No focal consolidation. No pleural effusions. Thoracic aorta normal in caliber. There is thoracic aortic atherosclerosis. The main pulmonary artery is dilated as can be seen with pulmonary artery hypertension. No suspicious mediastinal lymph nodes. Cardiomegaly. Coronary artery calcification. No pericardial effusion. 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 This may predispose the patient to gastroesophageal reflux, aspiration and/or cough. There is no imaging evidence of aspiration and/or pneumonia at this time. THIS IS AN ELECTRONICALLY VERIFIED FINAL REPORT 06/23/2024 3:13 PM - Electronically signed by Norm Fall M.D. SN: SN Report ID: [id number] Reading Location: [id number] Social History Type Status Start Date End Date Code Code Syst em Smoking History Never smoker (Never Smoked) 494723688 SNOMED CT Sex Female Medications Medication Start Date End Date Route Frequency Dose Code Code System Medication Instructions Home Meds Lisinopril 30MG Oral Tablet 06/25/2013 Unknown ORAL DAILY 30 MILLIGRAMS 272505 RxNorm 30 MILL IGRAMS ORAL DAILY Omeprazole 20MG Oral Capsule, Delayed Release 06/25/2013 Unknown ORAL DAILY 20 MILLIGRAMS 318746 RxNorm 20 MILL IGRAMS ORAL DAILY Clonidine 0.1MG Oral Tablet 06/25/2013 Unknown ORAL Q 12H 0.1 MILLIGRAMS 443883 RxNorm 0.1 MILLIGRAMS ORAL Q 12H Cranberry 400MG Oral Capsule 06/25/2013 Unknown ORAL Q 12H 400 MILLIGRAMS 8863043 RxNorm 400 MILLIGRAMS ORAL Q 12H Assessment [...] INSJ IO LENS PROSTH W/O ECP 04/02 2629824 1 076 11/12/2026 ACRYSO F SN60WF POWER: +21.5D Problems Problem Start Date Resolved Date Status Code Code System PHYSICAL THERAPY EVALUATION, INITIAL active 944679957 SNOMED-CT S/P TOTAL KNEE ARTHROPLASTY active 16 0299630 SNOMED-CT S/P TOTAL KNEE REPLACEMENT 06/21/2013 resolved 16 7457885 SNOMED-CT Allergies and Adverse Reactions Allergy Substance Reaction Severity Start Date Concern Status Code Code System CHLORZOXAZONE Active 2410 RxNorm MERCURY Rash (SNOMED-CT: 967832734) Moderate Active 6769 RxNorm ALLYL ISOTHIOCYANATE Active MUSTARD Rash (SNOMED-CT: 646164267) Active PARAFON FORTE DSC NAUSEA (SNOMED-CT: null) Moderate Active 889136 RxNorm APPLE Rash (SNOMED-CT: 013303681) Moderate Active STATINS (HMG-COA REDUCTASE INHIBITORS) Active Plan of Treatment Digital Haris Screen Bilateral (36639) CT Chest/Lung WO Contrast (69346) 06/23 Encounters Encounter Diagnosis Start Date Code Code Sys tem Diaphragmatic hernia without obstruction or gangrene 0 06/23/2024 SNOMED-CT Personal Care Team Section Performer Name Performer Role Active Date Inactive Da te Imaging Narrative Notes
--- OUTSIDE RECORDS SUMMARY | 2024-11-04 10:20 | XMS_ITS | Encounter Summary ---
Author Organization [facility] Address [address] [place] [address] Care Team Providers Care Transcript Evaluator Name Role Phone Mariaelena Elder MD Primary Care Provider + [phone] Augusto Mcguire MD Unavailable Unavailable Brandon Ayala MD Unavailable Unavailable Anastasia Leon MD Unavailable Encounter Details Date Type Department Care Team (Late Contact Info) Description 02/27/2015 [facility] [address] [address] Brandon Ayala MD Social History Tobacco Use Types Packs/Day Years Used Date Smoking Tobacco: Unknown Alcohol Use Standard Drinks/Week Comments No 0 (1 standard drink = 0.6 oz pur e alcohol) Comments Unknown Sex and Gender Information Value Date Recorded Sex Assigned at Not on file Legal Sex Female 8:50 PM CDT Gender Identity Not on file Sexual Orientation Not on file 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 Not on file Not on file documented as of this encounter Plan of Treatment Upcoming Encounters Date Type Department Care Team (Late Contact Info) Description 06/29/2025 11:15 AM CDT Office Visit [facility] [address] [place] [phone] Anastasia Leon MD [address] [place] [address] Arrived documented as of this encounter Visit Diagnoses Not on filedocumented in this encounter Care Teams Transcript Evaluator Relationship Specialty Start [place] [id number] [place] [address] PCP - General INTERNAL MEDICINE 03/12/16 Augusto Mcguire [place] [address] [place] [address] Vascular/Customer Care Assistant CARDIOVASCULAR DISEASE 03/12/16 Brandon Ayala MD [address] [place] [address] [place] Customer Care Assistant INTERVENTIONAL CARDIOLOGY 03/12/16 03/24/21 Anastasia Leon MD [address] [place] [address] Consulting Physician CARDIOVASCULAR DISEASE 03/25/21 documented as of this encounter
--- OUTSIDE RECORDS SUMMARY | 2024-11-04 10:20 | XMS_ITS ---
Author Organization [facility] Address [address] [place] [address] Care Team Providers Care Manager Research And Development Name Role Phone KATIE PETERSON Unavailable [phone] Mariaelena Elder Unavailable Unavailable Encounters Encounter Location Date Provider Diagnosis [facility] [address] [place] [address] 08/04/2024 KATIE PETERSON Plan Of Treatment No Information Progress Notes * EVI BAY LDOB: [birth year] (89 yo F)Acc No.[id number]:08/04/2024 Patient: EVI TAY Provider: Michelle Peterson DPM :1935 A ge:89 Y S ex:Female Date:08/04/2024 [facility] Subjective: * Chief Complaints: * * Medical History: Objective: * Vitals: Assessment: Plan: * Treatment: * Billing Information: * Visit Code: * Procedure Codes: * Electronic signature of IVONE PETERSON DPM on 11/04/2024 at 10:20 AM EDUCATION AND OUTREACH COORDINATOR Sign off status: Pending * Provider: Michelle Peterson DPM Date: 1 10/04/2023 Generated for Mayra cole/Schuyler/Eli on: 0 11/04/2024 10:20 AM EDUCATION AND OUTREACH COORDINATOR
--- OUTSIDE RECORDS SUMMARY | 2024-11-04 10:20 | XMS_ITS ---
Author Organization Unknown Address [address] [place] [address] [phone] Phone Care Team Providers Care Nutritional Chemist Name Role Phone DOMENICA DESAI Attending Unavailable [...] trivalent, PF 06/12/2012 Completed 135 CVX Results CHEST 2V - Completed: 2023 12:37 LOINC: EXAM DESCRIPTION: CHEST 2V REASON FOR STUDY: COUGH - PRODUCTIVE CONGESTION Duration: 2 WEEKS TECHNIQUE: Two radiographic view(s) of the chest. COMPARISON: 07/04/2016, CT 04/25/2014 FINDINGS: LINES/TUBES: None. LUNGS: Linear and patchy opacities of the bilateral lung bases partially obscuring the bilateral costophrenic angles may reflect scarring/atelectasis. Linear opacities along the posterior mediastinal mass, likely reflecting atelectasis. HEART/MEDIASTINUM: Interval increase in posterior mediastinal mass with air- fluid level likely reflecting large hiatal hernia. Otherwise, cardiomediastinal contours are unremarkable. BONES/SOFT TISSUES: Multilevel degenerative changes of the visualized spine. Advanced degenerative changes of the left glenohumeral joint. Surgical clips project over the upper abdomen. Aortic atherosclerotic calcifications. IMPRESSION: 1. Interval increase in likely large hiatal hernia. Recommend correlation with more recent cross-sectional imaging if available. 2. Bibasilar opacities which may reflect chronic scarring/atelectasis. However, difficult to completely exclude infection or aspiration in the appropriate clinical context. THIS IS AN ELECTRONICALLY VERIFIED FINAL REPORT 06/10/2024 1:01 PM - Electronically signed by Kev Oliveira M.D. NS: NS Report ID: [id number] Reading Location: [id number] Social History Type Status Start Date End Date Code Code Syst em Smoking History Never smoker (Never Smoked) [id number] SNOMED CT Sex Female Medications Medication Start Date End Date Route Frequency Dose Code Code System Medication Instructions Home Meds Lisinopril 30MG Oral Tablet 06/25/2013 Unknown ORAL DAILY 30 MILLIGRAMS 203060 RxNorm 30 MILL IGRAMS ORAL DAILY Omeprazole 20MG Oral Capsule, Delayed Release 06/25/2013 Unknown ORAL DAILY 20 MILLIGRAMS 608520 RxNorm 20 MILL IGRAMS ORAL DAILY Clonidine 0.1MG Oral Tablet 06/25/2013 Unknown ORAL Q 12H 0.1 MILLIGRAMS 365935 RxNorm 0.1 MILLIGRAMS ORAL Q 12H Cranberry 400MG Oral Capsule 06/25/2013 Unknown ORAL Q 12H 400 MILLIGRAMS 2941693 RxNorm 400 MILLIGRAMS ORAL Q 12H Assessment [...] INSJ IO LENS PROSTH W/O ECP 04/02 4743001 1 076 11/12/2026 ACRYSO F SN60WF POWER: +21.5D Problems Problem Start Date Resolved Date Status Code Code System PHYSICAL THERAPY EVALUATION, INITIAL active 061600683 SNOMED-CT S/P TOTAL KNEE ARTHROPLASTY active 16 0256088 SNOMED-CT S/P TOTAL KNEE REPLACEMENT 06/21/2013 resolved 16 2878568 SNOMED-CT Allergies and Adverse Reactions Allergy Substance Reaction Severity Start Date Concern Status Code Code System CHLORZOXAZONE Active 2410 RxNorm MERCURY Rash (SNOMED-CT: 476474350) Moderate Active 6769 RxNorm ALLYL ISOTHIOCYANATE Active MUSTARD Rash (SNOMED-CT: 028530539) Active PARAFON FORTE DSC NAUSEA (SNOMED-CT: null) Moderate Active 701298 RxNorm APPLE Rash (SNOMED-CT: 357363070) Moderate Active STATINS (HMG-COA REDUCTASE INHIBITORS) Active Plan of Treatment Digital Haris Screen Bilateral (55317) CT Chest/Lung WO Contrast (25310) 06/23 Encounters Encounter Diagnosis Start Date Code Code Sys tem Lung field abnormal 06/10/2024 [id number] SNOMED-C T Personal Care Team Section Performer Name Performer Role Active Date Inactive Da te Imaging Narrative Notes
== END 2024-11-04 09:30 | disposition home or self-care (01) ==
DX: R42 Dizziness and giddiness (principal); M43.02 Spondylolysis, cervical region
CPT/HCPCS: 70450; 72125